=== PATIENT | male | born 1955 | race Caucasian/White ===

== ENCOUNTER → 2020-03-20 17:01 | Outpatient (BNVA) | payer OTHER, SELFPAY | PROVIDERS: Family Provider Family Medicine; PCP Nurse Practitioner; Visit Provider Nurse Practitioner | DX: J02.9 Acute pharyngitis, unspecified (principal); J01.90 Acute sinusitis, unspecified | CPT/HCPCS: 87071; 87880 ==

== ENCOUNTER → 2020-05-21 09:29 | Outpatient (BNVA) | payer MEDICARE, OTHER, SELFPAY | PROVIDERS: Family Provider Family Medicine; PCP Nurse Practitioner; Visit Provider Family Medicine | DX: I10 Essential (primary) hypertension (principal); E78.5 Hyperlipidemia, unspecified; N52.9 Male erectile dysfunction, unspecified; R35.1 Nocturia | CPT/HCPCS: 80053; 80061; 82043; 84153; 84403; 85025; 87635 ==

== ENCOUNTER → 2020-06-10 16:25 | Outpatient (BNVA) | payer MEDICARE, OTHER, SELFPAY | PROVIDERS: Family Provider Family Medicine; PCP Nurse Practitioner; Visit Provider Nurse Practitioner Family | DX: Z20.828 Contact with and (suspected) exposure to other viral communicable diseases (principal) | CPT/HCPCS: 87635 ==

== ENCOUNTER 2020-07-20 08:07 | Outpatient (CLI) | payer MEDICARE, OTHER, SELFPAY ==
[2020-07-20 08:19] VITALS: BMI 43.8
--- NOTE | 2020-07-20 08:20 | NMCV_ITS ---
NM alessio perf SPECT r/s* [id number] Abhijit Cerna Age: 65 Gender: M : 1955 Exam Date: 07/20/2020 08:20 Ordering Phys: Jeannie Muñiz MD ([email or web address]) Technologist: KAREN Arboleda Exam Location: [facility] Indications: Chest pain STRESS TEST Please see separate stress test [facility] for full findings IMAGE PROTOCOL Rest/Stress 1 Exercise Day Radiopharmaceutical Dose (mCi) Administration Site Administered by Rest: Tc-99m 10.6 IV Thu Jenny, CLINICAL EVALUATOR Sestamibi Stress:Tc-99m 33.0 IV Thu Jenny, CLINICAL EVALUATOR Sestamibi Rest: 20-Jul-2020 60 Discovery 630 Stress: 20-Jul-2020 30 Discovery 630 Radiopharmaceutical was injected at 85 % maximum heart rate. Images obtained in supine and prone position. SPECT RESULTS Technical Quality: Good Raw Data Analysis: Normal Image Corrections: No attenuation or motion correction applied Summed Stress Score: 7 Summed Rest Score: 7 Summed Difference Score: 0 PERFUSION FINDINGS Moderate area of severely decreases uptake was noted in the mid and apical inferior, mid inferolateral and apical lateral regions. No significant reversibility was noted in these regions. FUNCTIONAL RESULTS (calculated via Gated SPECT) Stress Image LV EF (%): 60 Stress EDV (mL):97 TID: 0.9 Stress ESV (mL):39 FUNCTIONAL FINDINGS: Segmental wall motion analysis revealed a severe diffuse hypokinesia of the septum. IMPRESSIONS 1. Myocardial perfusion imaging revealing a moderate area of persistent decreased tracer uptake in the inferior, inferolateral and apical regions, suggestive of myocardial scarring versus attenuation artifact. 2. Normal LV ejection fraction of 60%. 3. LV wall motion abnormalities as mentioned above. 4. Normal LV volume. No significant coronary ischemia, based on the above Dr Jeannie Muñiz MD FACC (Electronically Signed) Final Date: 20 July 2020 13:20 S
--- NOTE | 2020-07-20 08:20 | ECG_ITS ---
[facility] Test Date: 2020-07-20 Pat Name: Abhijit Cerna Department: Room: Gender: Male Meeting Manager: : 1955 Requested By: Jeannie Muñiz Order Number: [id number] Emanuel MD: Jeannie Muñiz M.D. Interpretive Statements NAME OF STUDY: EXERCISE SESTAMIBI STRESS TEST INDICATION: ASHD PROCEDURE: The baseline electrocardiogram showed normal sinus rhythm with normal ST-Ts right bundle branch block pattern. At the baseline, the patient's blood pressure was 194/88 mm Hg with a heart rate of 82. The patient exercised for 6 minutes on a standard Matt protocol. Patient attained a maximum heart rate of 143 beats per minute(92% of the maximum predicted heart rate) with a blood pressure at the peak exercise of 269/122 mm Hg. The EKG at the peak exercise revealed no significant changes. Patient did not have any chest pain or any significant arrhythmis with the exercise Sestamibi was injected 1 minute prior to the peak exercise During the recovery phase, there were no new changes. Blood pressure at the end of the recovery phase was 187/77 mm Hg with a heart rate of 93 per minute. CONCLUSION: 1. No significant EKG changes with the [treadmill exercise 2. No exercise-induced chest pain or cardiac arrhythmia 3. Slightly impaired exercise tolerance, attained a maximum of 7.0 METs. 4. Sestamibi/Sestamibi perfusion results pending; see separate report. Electronically Signed On 07-24-2020 20:42:28 CAR RENTAL MANAGER by Jeannie Muñiz M.D. [id number]
--- NOTE | 2020-07-20 10:41 | SUR.PREOP ---
Patient reports no pain or discomfort prior to the start of the procedure.
[2020-07-20 11:07] VITALS: BP 188/69; PULSE 78
== END 2020-07-20 08:08 | disposition home or self-care (01) ==
LOC: CDL 08:12
PROVIDERS: PCP Family Medicine; Visit Provider Internal Medicine Cardiovascular Disease
DX: R07.89 Other chest pain (principal); R06.02 Shortness of breath
CPT/HCPCS: 78452; 93017; A9500

== ENCOUNTER → 2020-09-05 15:23 | Outpatient (BNVA) | payer OTHER, MEDICARE, SELFPAY | PROVIDERS: PCP Family Medicine; Visit Provider Nurse Practitioner Family | DX: J02.9 Acute pharyngitis, unspecified (principal); B97.89 Other viral agents as the cause of diseases classified elsewhere; J98.8 Other specified respiratory disorders; Z20.828 Contact with and (suspected) exposure to other viral communicable diseases | CPT/HCPCS: 87071; 87635; 87880 ==

== ENCOUNTER 2020-10-03 08:20 | Outpatient (CLI) | payer OTHER, MEDICARE, SELFPAY ==
--- NOTE | 2020-10-03 08:30 | CT_ITS ---
WS: [id number] LDCT LUNG CANCER SCREENING TECHNIQUE: Noncontrast CT of the chest with coronal and sagittal reformatted images. CLINICAL INFORMATION: HISTORY OF TOBACCO USE Z87.891 COMPARISON: DLP: 57.35 mGy.cm DIvol: 1.[address] scans at [facility] use at least one of these dose optimization techniques: automat ed exposure control; mA and/or kV adjustment per patient size (includes targeted exams where dose is matched to clinical indication); or iterative reconstruction. FINDINGS: A few subcentimeter noncalcified pulmonary nodules the 2 largest in the left lower lobe measuring 4 a nd 5 mm respectively. These are not significantly changed since November 22, 2018. Calcified granuloma right lower lobe. Chronic emphysematous changes. Small left pleural effusion. Sub segmental atelectasis in the lung bases. Aortic calcification. Coronary calcification. Sternotomy prior CABG. No mediastinal or hilar lymphade nopathy. No axillary lymphadenopathy. Hypertrophic changes thoracic spine. CT/CT lung screening [id number] IMPRESSION: LUNG-RADS: 2-Benign Appearance or Behavior FOLLOW UP: 12 Month: Continue annual screening with LDCT
== END 2020-10-03 08:21 | disposition home or self-care (01) ==
LOC: RAD 08:26
PROVIDERS: PCP Family Medicine; Visit Provider Family Medicine
DX: Z12.2 Encounter for screening for malignant neoplasm of respiratory organs (principal); Z87.891 Personal history of nicotine dependence
CPT/HCPCS: 71271

== ENCOUNTER → 2020-11-02 14:56 | Outpatient (BNVA) | payer OTHER, MEDICARE, SELFPAY | PROVIDERS: PCP Family Medicine; Visit Provider Nurse Practitioner | DX: M17.12 Unilateral primary osteoarthritis, left knee (principal); M25.562 Pain in left knee; M25.462 Effusion, left knee | CPT/HCPCS: 73562 ==

== ENCOUNTER → 2020-11-09 09:08 | Outpatient (BNVA) | payer OTHER, MEDICARE, SELFPAY | PROVIDERS: PCP Family Medicine; Visit Provider Family Medicine | DX: I10 Essential (primary) hypertension (principal); E66.01 Morbid (severe) obesity due to excess calories; Z68.42 Body mass index [BMI] 45.0-49.9, adult; F17.211 Nicotine dependence, cigarettes, in remission | CPT/HCPCS: 80053; 80061; 82043; 85025 ==

== ENCOUNTER → 2021-09-04 13:04 | Outpatient (BNVA) | payer OTHER, MEDICARE, SELFPAY | PROVIDERS: PCP Family Medicine; Visit Provider Nurse Practitioner Family | DX: Z20.828 Contact with and (suspected) exposure to other viral communicable diseases (principal) | CPT/HCPCS: 87635 ==

== ENCOUNTER → 2021-10-17 15:26 | Outpatient (BNVA) | payer OTHER, MEDICARE, SELFPAY | PROVIDERS: PCP Family Medicine; Visit Provider Nurse Practitioner Family | DX: Z20.822 Contact with and (suspected) exposure to COVID-19 (principal); Z20.828 Contact with and (suspected) exposure to other viral communicable diseases | CPT/HCPCS: 87635 ==

== ENCOUNTER 2021-10-20 19:01 | Emergency (ER) | payer OTHER, MEDICARE, SELFPAY ==
--- NOTE | 2021-10-20 19:05 | XRR_ITS ---
PROCEDURE INFORMATION: Exam: XR Chest Exam date and time: 10/20/2021 7:05 PM Age: 66 years old Clinical indication: Cough and dyspnea; Prior surgery; Surgery date: 6+ months; Surgery type: Cabg; Additional info: SOB TECHNIQUE: Imaging protocol: XR of the chest. Views: 1 view. COMPARISON: CT chest con [id number] 11/22/2018 8:35 AM FINDINGS: Lungs: Unremarkable. No consolidation. Pleural spaces: Unremarkable. No pleural effusion. No pneumothorax. Heart/Mediastinum: Mild cardiomegaly. Prior CABG. Bones/joints: Unremarkable. XR/XR chest 1V portable [id number] IMPRESSION: No acute pulmonary disease identified.
[2021-10-20 19:15] VITALS: BP 186/87; PULSE 69; RESP 24; TEMP 36.7; O2SAT 98; BMI 46.2
--- NOTE | 2021-10-20 22:24 | ED_ITS ---
HPI - SOB/Dyspnea General: Chief Complaint: Shortness of Breath/Dyspnea Stated Complaint: cough,sob Time Seen by Provider: 10/20/21 22:13 Source: patient Mode of arrival: ambulatory Limitations: no limitations History of Present Illness: HPI Narrative: 66-year-old male who states that he has been having a constant cough over the last 6 to 7 weeks he states he has been seen in the urgent care multiple times had 3 different Covid test that were negative is been on steroids albuterol and antibiotics with no change. He states he is continued with this dry cough. Denies any fever or shortness of breath. Patient is on lisinopril states he has never had any issues with it in the past. Associated symptoms: Deny abdominal pain, chest pain, fever(s), nausea or vomiting Review of Systems Const: Denies: fever(s), chills, body aches or change in appetite Eyes: Denies: blurry vision or eye discomfort ENMT: Denies: throat pain or dental pain Card: Denies: chest pain Resp: Reports: non-productive cough; Denies: dyspnea GI: Denies: abdominal pain, nausea, vomiting or diarrhea : Denies: dysuria Musc: Denies: neck pain or back pain Skin/Breast: Denies: rash Neuro: Denies: headache(s) Psych: Denies: depression Karthikeyan/Lymph: Denies: easy bruising All/Imm: Denies: urticaria PFSH ED PFSH: Medical History (Updated 10/20/21 @ 23:40 by Belkis Samuels MD) Acid reflux Atherosclerotic heart disease of [place] coronary artery without angina pectoris Atrial fibrillation with RVR Dyslipidemia Hypertension Hypokalemia Pulmonary emboli Severe obstructive sleep apnea Surgical History Hx of CABG Hx of hernia repair Family History Brother CAD (coronary artery disease) Stroke Brother CAD (coronary artery disease) Family/Other CAD (coronary artery disease) Mother Cancer Father Dementia Sister Lung disease Other Hyperlipidemia Hypertension Denies family history of Diabetes Clotting disorder Chronic kidney disease (CKD) Suicide Anesthesia complication Bleeding disorder Social History Smoking and tobacco status: former smoker Alcohol intake: former History of recent travel: No Agree to transfusion: Yes (11/04/2019) Physical Exam Const: COMMON NORMALS: no acute distress, patient oriented x3 and healthy appearing HENMT: COMMON NORMALS: normocephalic and atraumatic HEAD & SCALP: normocephalic and atraumatic Eye: COMMON NORMALS: Equal, round and reactive pupils present and EOMs intact bilaterally PUPIL: Yes Equal, round and reactive pupils present Neck/C-Spine: COMMON NORMALS: full ROM and supple Chest: COMMONS NORMALS: normal inspection of the chest and normal palpation of entire chest wall Resp: COMMON NORMALS: normal respiratory effort, No retractions, No use of acc essory muscles and clear to auscultation bilaterally AUSCULTATION: clear to auscultation bilaterally Cardio: COMMON NORMALS: regular rate, regular rhythm and No murmurs present (Cardio) RATE: regular rate RHYTHM: regular rhythm GI: COMMON NORMALS: Normal to inspection, nondistended, normoactive bowel sounds present, Soft to palpation, non-tender and no masses PALPATION: Yes Soft to palpation Extremity: COMMON NORMALS: normal to inspection and full ROM Neuro: COMMON NORMALS: patient oriented x3, moves all extremities and no focal motor deficits Psych: COMMON NORMALS: mental status grossly normal, Normal thought process present and cooperative THOUGHT PROCESS: Normal thought process present Skin: COMMON NORMALS: no rashes or lesions noted and no wounds GENERAL SKIN EXAM: no rashes or lesions noted Course Vital Signs: Vital signs: Vital Signs Temperature 98.0 F 10/20/21 19:15 Pulse Rate 69 10/20/21 19:15 Respiratory Rate 24 H 10/20/21 19:15 Blood Pressure 186/87 10/20/21 19:15 Pulse Oximetry 98 10/20/21 19:15 MDM - SOB/Dyspnea Medical Decision Making Patient presents here with cough that is been going on for weeks he has no signs of pneumonia has had multiple negative Covid test believe it could be due to his AURORA inhibitor will stop the lisinopril increase his metoprolol he follows up with his PCP this Thursday. Lab Data : 10/20/21 22:39 10/20/21 22:39 Labs/Radiology: Radiology Impressions Chest X-Ray 10/20/21 19:05 IMPRESSION: No acute pulmonary disease identified. Laboratory Results WBC 8.4 10^3/uL (4.0-10.0) 10/20/21 22:39 RBC 4.42 10^6/uL (4.1-5.3) 10/20/21 22: Hgb 14.4 g/dL (11.7-16.6) 10/20/21 22:39 Hct 42.5 % (42.0-52.0) 10/20/21 22: MCV 96.2 fl (80-94) H 10/20/21 22:39 MCH 32.6 pg (28.0-34.0) 10/20/21 22: MCHC 33.9 g/dL (30.0-36.0) 10/20/21 22: RDW 13.2 % (12.1-15.1) 10/20/21 22: Plt Count 207 10^3/cmm (130-400) 10/20/21 22: MPV 11.8 fL (7.4-10.4) H 10/20/21 22:39 Neut % (Auto) 49.2 % 10/20/21 22:39 Lymph % (Auto) 26.1 % 10/20/21 22:39 Burt % (Auto) 12.0 % 10/20/21 22:39 Eos % (Auto) 11.0 % 10/20/21 22:39 Baso % (Auto) 1.1 % 10/20/21 22:39 Neut # (Auto) 4.16 10^3/uL (1.8-7.7) 10/20/21 22:39 Lymph # (Auto) 2.2 10^3/uL (0.8-4.8) 10/20/21 22:39 Burt # (Auto) 1.0 10^3/uL (0.2-0.9) H 10/20/21 22:39 Eos # (Auto) 0.9 10^3/uL (0.0-0.8) H 10/20/21 22:39 Baso # (Auto) 0.1 10^3/uL (0.0-0.1) 10/20/21 22:39 Nucleated RBC % (auto) 0 % 10/20/21: Nucleated RBCs # 0.0 /100WBC 10/20/21 22:39 PT 14.70 SECONDS (12.1-14.9) 10/20/21 22:39 INR 1.11 (0.8-1.2) 10/20/21 22:39 Sodium 135 mmol/L (136-145) L 10/20/21 22:39 Potassium 4.4 mmol/L (3.5-5.1) 10/20/21 22:39 Chloride 103 mmol/L (98-107) 10/20/21 22:39 Carbon Dioxide 22 mmol/L (22-29) 10/20/21 22:39 Anion Gap 14.4 (5-19) 10/20/21 22:39 BUN 14 mg/dL (8-23) 10/20/21 22:39 Creatinine 0.9 mg/dL (0.7-1.2) 10/20/21 22:39 GFR Calculation 84.4 mL/min (90-130) L 10/20/21 22:39 Glucose 94 mg/dL (65-115) 10/20/21 22:39 Calculated Osmolality 280 mOsm/kg (285-295) L 10/20/21 22:39 Calcium 8.1 mg/dL (8.5-10.5) L 10/20/21 22:39 Total Bilirubin 0.2 mg/dL (0.15-1.2) 10/20/21 22:39 AST 36 U/L (0-40) 10/20/21 22:39 ALT 39 U/L (0-41) 10/20/21 22:39 Alkaline Phosphatase 86 IU/L (40-130) 10/20/21 22:39 NT-Pro-B Natriuret Pep 405 pg/mL (0-125) H 10/20/21 22:39 Total Protein 7.6 g/dL (6.6-8.7) 10/20/21 22:39 Albumin 3.7 g/dL (3.5-5.2) 10/20/21 22:39 Globulin 3.9 g/dL (1.3-4.6) 10/20/21 22:39 Imaging Data CXR: I personally reviewed and interpreted this imaging study as follows: My impression: no acute abnormality Discharge Plan Discharge Patient Disposition: Home Clinical Impression: 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 Condition: Stable Prescriptions: New metoprolol tartrate 50 mg tablet 50 mg PO BID Qty: 60 0RF Continued Tessalon Perles 100 mg capsule 100 mg PO BID PRN (Reason: cough) 15 Days Qty: 30 0RF Discontinued metoprolol tartrate 25 mg tablet See Rx Instructions .ROUTE .COMPLEX Qty: 180 2RF Dose Instruction: TAKE 1 TABLET BY MOUTH EVERY 12 HOURS Rx Instructions: TAKE 1 TABLET BY MOUTH EVERY 12 HOURS lisinopril 10 mg tablet 10 mg PO BID Qty: 180 2RF Rx Instructions: needs appt to see Dr Antonino Madden Action sotalol [Sotalol AF] 80 mg tablet 80 mg PO BID Qty: 180 3RF magnesium oxide 250 mg magnesium tablet 250 mg PO DAILY Qty: 90 3RF Eliquis 5 mg tablet 5 mg PO BID Qty: 180 3RF levocetirizine [Xyzal] 5 mg tablet 5 mg PO .nightly 15 Days Qty: 15 0RF amoxicillin-pot clavulanate [Augmentin] 875-125 mg tablet 1 tab PO BID 0RF melatonin 1 mg tablet See Rx Instructions PO DAILY PRN0RF Rx Instructions: PO daily PRN; aspirin [Adult Aspirin Regimen] 81 mg tablet,delayed release (DR/EC) 81 mg PO DAILY 0RF omeprazole 20 mg tablet,delayed release (DR/EC) 20 mg PO DAILY PRN0RF potassium gluconate 595 mg (99 mg) tablet 595 mg PO DAILY 0RF sildenafil (pulm.hypertension) 20 mg tablet 20 mg PO .COMPLEX Qty: 30 1RF Rx Instructions: 20 mg PO 1-5 tablets 1 hr prior to intercourse; administer doses at least 4-6 hours apart Contrave 8-90 mg tablet extended release 2 tab PO BID Qty: 120 3RF Rx Instructions: 340 B levofloxacin 500 mg tablet 500 mg PO DAILY Qty: 10 0RF budesonide-formoterol [Symbicort] 80-4.5 mcg/actuation HFA aerosol inhaler 2 puff inhalation BID Qty: 10.2 0RF Discharge Orders: Discharge ED (Routine); Ordered 10/20/21 Ordered By: Belkis Samuels Referrals: Erum Hicks DO [Primary Care Provider] - 1-3 days Discharge Diet: Advance as tolerated Discharge Activity: Resume usual activity Patient Instructions: Acute Cough (ED) Coding Level of Care Code ED Puttying And Calking Supervisor for Chg Fwd Exam Comprehensive
[2021-10-20] MEDS: benzonatate 100 mg Capsule 200 MG PO (22:31)
[2021-10-20 22:51] LABS: Basophils # 0.1 10^3/uL (0.0-0.1); Basophils % 1.1 %; Eosinophils # 0.9 10^3/uL (0.0-0.8); Hematocrit 42.5 % (42.0-52.0); Hemoglobin 14.4 g/dL (11.7-16.6); Lymphocytes # 2.2 10^3/uL (0.8-4.8); Lymphocytes % 26.1 %; Mean Corpuscular HGB Conc 33.9 g/dL (30.0-36.0); Mean Corpuscular Hemoglobin 32.6 pg (28.0-34.0); Mean Corpuscular Volume 96.2 fl (80-94); Mean Platelet Volume 11.8 fL (7.4-10.4); Neutrophils # 4.16 10^3/uL (1.8-7.7); Neutrophils % 49.2 %; Nucleated Red Blood Cells % 0 %; Platelet Count 207 10^3/cmm (130-400); Red Blood Count 4.42 10^6/uL (4.1-5.3); Red Cell Distribution Width 13.2 % (12.1-15.1); White Blood Count 8.4 10^3/uL (4.0-10.0)
[2021-10-20 23:31] LABS: INR 1.11 (0.8-1.2)
[2021-10-20 23:32] LABS: Alanine Aminotransferase 39 U/L (0-41); Albumin Level 3.7 g/dL (3.5-5.2); Alkaline Phosphatase 86 IU/L (40-130); Anion Gap 14.4 (5-19); Aspartate Amino Transferase 36 U/L (0-40); Blood Urea Nitrogen 14 mg/dL (8-23); Calcium 8.1 mg/dL (8.5-10.5); Carbon Dioxide 22 mmol/L (22-29); Chloride 103 mmol/L (98-107); Globulin 3.9 g/dL (1.3-4.6); Glomerular Filtration Rate 84.4 mL/min (90-130); Glucose 94 mg/dL (65-115); NT Pro B Type Natriuretic Pept 405 pg/mL (0-125); Osmolality Calculated 280 mOsm/kg (285-295); Potassium 4.4 mmol/L (3.5-5.1); Sodium 135 mmol/L (136-145); Total Bilirubin 0.2 mg/dL (0.15-1.2); Total Protein 7.6 g/dL (6.6-8.7)
== END 2021-10-20 23:54 | disposition home or self-care (01) ==
PROVIDERS: Emergency Provider Emergency Medicine; PCP Family Medicine
DX: R05.8 Other specified cough (principal); Z79.01 Long term (current) use of anticoagulants; Z79.82 Long term (current) use of aspirin; Z87.891 Personal history of nicotine dependence; I25.10 Atherosclerotic heart disease of native coronary artery without angina pectoris; E78.5 Hyperlipidemia, unspecified; I10 Essential (primary) hypertension; Z86.711 Personal history of pulmonary embolism; Z95.1 Presence of aortocoronary bypass graft
CPT/HCPCS: 71045; 80053; 83880; 85025; 85610; 99283

== ENCOUNTER 2021-11-11 07:56 | Emergency (ER) | payer OTHER, MEDICARE, SELFPAY ==
[2021-11-11 08:11] VITALS: BP 145/48; PULSE 60; RESP 15; O2SAT 97; BMI 44.6
--- NOTE | 2021-11-11 08:23 | ECG_ITS ---
[facility] Test Date: 2021-11-11 Pat Name: Abhijit Cerna Department: Room: Gender: Male Cost Estimator: : 1955 Requested By: Martell Aburto Order Number: [id number] Emanuel MD: Abad Glover M.D. Measurements Intervals [place] Rate: 60 P: 39 RI: 166 QRS: 30 QRSD: 141 T: 10 QT: 486 QTc: 486 Interpretive Statements SINUS RHYTHM WITH OCCASIONAL SUPRAVENTRICULAR PREMATURE COMPLEXES RIGHT BUNDLE BRANCH BLOCK [120+ ms QRS DURATION, UPRIGHT V1, 40+ ms S IN I/aVL/V4/V5/V6] Compared to ECG 05/21/2018 14:31:02 Atrial fibrillation no longer present T-wave abnormality no longer present Possible ischemia no longer present Electronically Signed On 11-11-2021 12:12:36 SALESFORCE TRAINER by Abad Glover M.D. [id number]
--- NOTE | 2021-11-11 08:23 | XR_ITS ---
WS: [id number] CHEST XRAY TECHNIQUE: Portable chest. CLINICAL INFORMATION: dyspnea/cough COMPARISON: October 20, 2021 FINDINGS: Heart: Cardiomegaly. Sternotomy. Mediastinal clips. Lungs: No acute pulmonary infiltrates. No focal pneumonia or pleural fluid. Bones: Normal visualized bony structures. XR/XR chest 1V portable [id number] IMPRESSION: No acute chest findings
[2021-11-11 08:24] VITALS: BP 137/50; PULSE 59; RESP 16; O2SAT 97
--- NOTE | 2021-11-11 08:24 | ED_ITS ---
HPI - Arrhythmia/Palpitations General: Chief Complaint: Arrhythmia/Palpitations Stated Complaint: possible Afib, SOB, dizziness Time Seen by Provider: 11/11/21 07:57 Source: patient Mode of arrival: EMS History of Present Illness: 66-year-old male presents emergency room complaining of irregular heartbeat and rapid heartbeat. Patient has a known history of atrial fibrillation. He is on sotalol and aspirin. He states he recently was switched from lisinopril to valsartan for blood pressure control because of an AURORA inhibitor cough. He has not taken his sotalol this morning. He reports earlier this morning he felt a rapid heart rate. Time patient was seen he is in normal sinus rhythm with occasional PACs. There are some compensatory sinus pauses as well. He denies any chest discomfort. He states when the heart rate is rapid he feels like he is going to pass out and will have shortness of breath at times. He usually sees Dr. Muñiz last seen him 6 months ago recently seen the midlevel Nazanin Martini at the cardiology clinic. complaint: rapid heart beat and heart racing Onset (ago): week(s) Duration: intermittent Severity: mild Context: occurred during rest Arrhythmia history: atrial fibrillation Associated symptoms: Reports pre-syncope and short of breath; Deny anxiety, cough, diaphoresis, muscle cramps, nausea, paresthesias, sense of impending doom, syncope or vomiting Review of Systems Const: Denies: diaphoresis ENMT: Denies: throat pain, ear or mastoid pain, nasal discharge or nasal congestion Card: Reports: pre-syncope; Denies: syncope Resp: Denies: dyspnea, productive cough or non-productive cough GI: Denies: nausea or vomiting : Denies: flank pain, dysuria, urinary frequency or urinary urgency Musc: Denies: muscle cramps Skin/Breast: Denies: rash or pruritus Psych: Denies: anxiety PFSH ED PFSH: Medical History (Updated 11/11/21 @ 11:28 by Martell Burgos DO) Acid reflux Atherosclerotic heart disease of [place] coronary artery without angina pectoris Atrial fibrillation with RVR Dyslipidemia Hypertension Hypokalemia Pulmonary emboli Severe obstructive sleep apnea Surgical History Hx of CABG Hx of hernia repair Family History Brother CAD (coronary artery disease) Stroke Brother CAD (coronary artery disease) Family/Other CAD (coronary artery disease) Mother Cancer Father Dementia Sister Lung disease Other Hyperlipidemia Hypertension Denies family history of Diabetes Clotting disorder Chronic kidney disease (CKD) Suicide Anesthesia complication Bleeding disorder Social History Smoking and tobacco status: former smoker Alcohol intake: former History of recent travel: No Agree to transfusion: Yes (11/04/2019) Physical Exam Const: GENERAL APPEARANCE: cooperative and comfortable ORIENTATION/CONSCIOUSNESS: Yes awake, Yes oriented to person, Yes oriented to place and Yes oriented to time HENMT: COMMON NORMALS: normocephalic, atraumatic and hearing grossly normal bilaterally HEAD & SCALP: normocephalic and atraumatic Neck/C-Spine: COMMON NORMALS: no JVD Resp: COMMON NORMALS: normal respiratory effort, No retractions, No use of accessory muscles and clear to auscultation bilaterally AUSCULTATION: clear to auscultation bilaterally Cardio: COMMON NORMALS: no JVD, regular rate, regular rhythm and No murmurs present (Cardio) RATE: regular rate RHYTHM: regular rhythm GI: COMMON NORMALS: Soft to palpation and No hepatosplenomegaly present AUSCULTATION: Yes normoactive bowel sounds PALPATION: Yes Soft to palpation, No Tenderness to palpation present (GI), No Guarding due to palpation present (GI) and Yes No hepatosplenomegaly present Extremity: COMMON NORMALS: normal to inspection, capillary refill normal, no clubbing, cyanosis or edema, no calf tenderness and no pedal edema Neuro: SENSORIUM/ORIENTATION: Yes oriented to person, Yes oriented to place and Yes oriented to time Skin: COMMON NORMALS: no rashes or lesions noted GENERAL SKIN EXAM: no rashes or lesions noted Course Vital Signs: Vital signs: Vital Signs Pulse Rate 57 L 11/11/21 11:40 Respiratory Rate 13 11/11/21 11:40 Blood Pressure 137/62 11/11/21 11:40 Pulse Oximetry 96 11/11/21 11:40 MDM - Arrhythmia/Palpitations Medical Decision Making Patient in normal sinus rhythm the majority of time he does have a few episodes of slow A. fib but usually self corrects. At this point there is no intervention to be made he is stable. We will set up a Holter monitor second evaluate for breakthrough A. fib with RVR follow-up with his primary care doctor no change in medications discussed with the patient. Medical Records I reviewed the patient's medical records. Lab Data I reviewed the patient's lab results. : 11/11/21 09:00 11/11/21 09:00 Radiology Impressions Chest X-Ray 11/11/21 08:23 IMPRESSION: No acute chest findings Laboratory Results WBC 6.6 10^3/uL (4.0-10.0) 11/11/21 09:00 RBC 4.12 10^6/uL (4.1-5.3) 11/11/21 09:00 Hgb 13.2 g/dL (11.7-16.6) 11/11/21 09:00 Hct 39.9 % (42.0-52.0) L 11/11/21 09:00 MCV 96.8 fl (80-94) H 11/11/21 09:00 MCH 32.0 pg (28.0-34.0) 11/11/21 09:00 MCHC 33.1 g/dL (30.0-36.0) 11/11/21 09:00 RDW 12.9 % (12.1-15.1) 11/11/21 09:00 Plt Count 180 10^3/cmm (130-400) 11/11/21 09:00 MPV 11.7 fL (7.4-10.4) H 11/11/21 09:00 Neut % (Auto) 44.1 % 11/11/21 09:00 Lymph % (Auto) 24.8 % 11/11/21 09:00 Fisher % (Auto) 8.0 % 11/11/21 09:00 Eos % (Auto) 21.6 % 11/11/21 09:00 Baso % (Auto) 1.2 % 11/11/21 09:00 Neut # (Auto) 2.92 10^3/uL (1.8-7.7) 11/11/21 09:00 Lymph # (Auto) 1.6 10^3/uL (0.8-4.8) 11/11/21 09:00 Fisher # (Auto) 0.5 10^3/uL (0.2-0.9) 11/11/21 09:00 Eos # (Auto) 1.4 10^3/uL (0.0-0.8) H 11/11/21 09:00 Baso # (Auto) 0.1 10^3/uL (0.0-0.1) 11/11/21 09:00 Nucleated RBC % (auto) 0 % 11/11/21 09:00 Nucleated RBCs # 0.0 /100WBC 11/11/21 09:00 Sodium 135 mmol/L (136-145) L 11/11/21 09:00 Potassium 3.8 mmol/L (3.5-5.1) 11/11/21 09:00 Chloride 104 mmol/L (98-107) 11/11/21 09:00 Carbon Dioxide 20 mmol/L (22-29) L 11/11/21 09:00 Anion Gap 14.8 (5-19) 11/11/21 09:00 BUN 15 mg/dL (8-23) 11/11/21 09:00 Creatinine 0.9 mg/dL (0.7-1.2) 11/11/21 09:00 GFR Calculation 84.4 mL/min (90-130) L 11/11/21 09:00 Glucose 143 mg/dL (65-115) H 11/11/21 09:00 Calculated Osmolality 283 mOsm/kg (285-295) L 11/11/21 09:00 Calcium 9.1 mg/dL (8.5-10.5) 11/11/21 09:00 Total Bilirubin 0.3 mg/dL (0.15-1.2) 11/11/21 09:00 AST 40 U/L (0-40) 11/11/21 09:00 ALT 41 U/L (0-41) 11/11/21 09:00 Alkaline Phosphatase 73 IU/L (40-130) 11/11/21 09:00 Troponin T Baseline 13 ng/L (0-15) 11/11/21 09:00 Troponin T 120 Minute 11.56 ng/L (0-15) 11/11/21 10:41 Delta Troponin T -1.44 ABS# (0-10) L 11/11/21 10:41 Total Protein 7.5 g/dL (6.6-8.7) 11/11/21 09:00 Albumin 3.6 g/dL (3.5-5.2) 11/11/21 09:00 Globulin 3.9 g/dL (1.3-4.6) 11/11/21 09:00 Discharge Plan Discharge Patient Disposition: Home Clinical Impression: Atrial fibrillation, Hypertension Condition: Stable Prescriptions: No Action Eliquis 5 mg tablet 5 mg PO BID Qty: 180 3RF metoprolol tartrate 50 mg tablet 25 mg PO BID 0RF Tessalon Perles 100 mg capsule 100 mg PO TID PRN (Reason: cough) 15 Days Qty: 45 0RF omeprazole 20 mg tablet,delayed release (DR/EC) 20 mg PO DAILY PRN (Reason: Heartburn) 0RF potassium gluconate 595 mg (99 mg) tablet 595 mg PO QAM 0RF sildenafil (pulm.hypertension) 20 mg tablet 20 mg PO .COMPLEX Qty: 30 1RF Rx Instructions: 1-5 tablets 1 hr prior to intercourse; administer doses at least 4-6 hours apart Contrave 8-90 mg tablet extended release 2 tab PO BID Qty: 120 3RF Rx Instructions: 340 B multivitamin Tablet 1 tab PO DAILY 0RF aspirin 325 mg Tablet 325 mg PO QAM 0RF sotalol 80 mg tablet 80 mg PO BID 0RF Claritin 10 mg Tablet 10 mg PO DAILY PRN (Reason: Allergy Symptoms) 0RF melatonin 10 mg Tablet 10 mg PO BEDTIME PRN (Reason: Sleep) 0RF magnesium oxide 400 mg magnesium Tablet 400 mg PO BEDTIME 0RF valsartan 160 mg tablet 160 mg PO QAM 0RF Xyzal 5 mg tablet 5 mg PO DAILY PRN (Reason: Allergy Symptoms) 0RF Discharge Orders: Discharge ED (Routine); Ordered 11/11/21 Ordered By: Martell Burgos Referrals: Erum Hicks DO [Primary Care Provider] - Patient Instructions: Opioid Safety Activity Restrictions/Additional Instructions: manager club will make arrangements for you for 48-hour Holter monitor. Follow- up with cardiology. Coding Level of Care Code ED Nurse Healthcare Manager for Ivonne Fwd Exam Comprehensive
[2021-11-11 08:46] VITALS: BP 121/63; BP 143/65; BP 149/64
[2021-11-11 09:11] LABS: Basophils # 0.1 10^3/uL (0.0-0.1); Basophils % 1.2 %; Eosinophils # 1.4 10^3/uL (0.0-0.8); Eosinophils % 21.6 %; Hematocrit 39.9 % (42.0-52.0); Hemoglobin 13.2 g/dL (11.7-16.6); Lymphocytes # 1.6 10^3/uL (0.8-4.8); Lymphocytes % 24.8 %; Mean Corpuscular HGB Conc 33.1 g/dL (30.0-36.0); Mean Corpuscular Volume 96.8 fl (80-94); Mean Platelet Volume 11.7 fL (7.4-10.4); Monocytes # 0.5 10^3/uL (0.2-0.9); Neutrophils # 2.92 10^3/uL (1.8-7.7); Neutrophils % 44.1 %; Nucleated Red Blood Cells % 0 %; Platelet Count 180 10^3/cmm (130-400); Red Blood Count 4.12 10^6/uL (4.1-5.3); Red Cell Distribution Width 12.9 % (12.1-15.1); White Blood Count 6.6 10^3/uL (4.0-10.0)
[2021-11-11 09:27] LABS: Alanine Aminotransferase 41 U/L (0-41); Albumin Level 3.6 g/dL (3.5-5.2); Alkaline Phosphatase 73 IU/L (40-130); Anion Gap 14.8 (5-19); Aspartate Amino Transferase 40 U/L (0-40); Blood Urea Nitrogen 15 mg/dL (8-23); Calcium 9.1 mg/dL (8.5-10.5); Carbon Dioxide 20 mmol/L (22-29); Chloride 104 mmol/L (98-107); Globulin 3.9 g/dL (1.3-4.6); Glomerular Filtration Rate 84.4 mL/min (90-130); Glucose 143 mg/dL (65-115); Osmolality Calculated 283 mOsm/kg (285-295); Potassium 3.8 mmol/L (3.5-5.1); Sodium 135 mmol/L (136-145); Total Bilirubin 0.3 mg/dL (0.15-1.2); Total Protein 7.5 g/dL (6.6-8.7)
[2021-11-11 09:28] LABS: Troponin(5th) Baseline 13 ng/L (0-15)
[2021-11-11 09:45] VITALS: BP 121/63; PULSE 61; RESP 16; O2SAT 97
--- NOTE | 2021-11-11 09:59 | PC.PHAR ---
pt states he takes care of his own medications-pt states he doesnt use symbicort 80-4.5mcg and proair hfa last filled on 10/11/21
--- NOTE | 2021-11-11 10:23 | ECG_ITS ---
[facility] Test Date: 2021-11-11 Pat Name: Abhijit Cerna Department: Room: Gender: Male Structural Manager: : 1955 Requested By: Martell Aburto Order Number: [id number] Emanuel MD: Abad Glover M.D. Measurements Intervals [place] Rate: 54 P: 29 OR: 163 QRS: 28 QRSD: 142 T: 2 QT: 490 QTc: 465 Interpretive Statements SINUS BRADYCARDIA RIGHT BUNDLE BRANCH BLOCK [120+ ms QRS DURATION, UPRIGHT V1, 40+ ms S IN I/aVL/V4/V5/V6] Compared to ECG 11/11/2021 08:39:55 Sinus rhythm no longer present Electronically Signed On 11-11-2021 12:16:27 FOREIGN CLERK by Abad Glover M.D. [email or web address] hospital[facility].[employer]/store/OM/[id number]
[2021-11-11 11:18] LABS: Troponin 5 2HR 11.56 ng/L (0-15)
[2021-11-11 11:40] VITALS: BP 137/62; PULSE 57; RESP 13; O2SAT 96
[2021-11-11 11:47] LABS: Troponin 5 2HR Delta -1.44 ABS# (0-10)
--- NOTE | 2021-11-12 10:58 | DCPLANNER ---
Addendum entered by Nikole Draper 12/13/21 11:58: Patient had a follow up appointment scheduled for 12.09.21 with [facility] - patient did attend appointment. Patient had a follow up appointment scheduled for 11.25.21 for a holter monitor - patient did not attend appointment. Addendum entered by Nikole Draper 11/16/21 10:25: Patient has an appointment scheduled for Thursday, November 25, 2021 at 11:30 at [facility] for a 48 hour halter monitor. Original Note: manager orange had message to schedule a follow up appointment for patient with [facility], and to schedule an out patient 48 hour halter monitor. manager orange called [facility], spoke with Tita, gave clinic patients information. A follow up appointment is scheduled for Thursday, December 09, 2021 at 1:[address] Muñiz. manager orange called both numbers in chart, and [phone], unable to speak with patient at this time, a voicemail was left for patient to return disease case manager rn phone call. manager orange faxed the signed order for the 48 hour halter monitor to [facility], who will call patient with appointment information.
== END 2021-11-11 11:42 | disposition home or self-care (01) ==
PROVIDERS: Emergency Provider Family Medicine; PCP Family Medicine
DX: I48.91 Unspecified atrial fibrillation (principal); I10 Essential (primary) hypertension; Z79.01 Long term (current) use of anticoagulants; Z79.82 Long term (current) use of aspirin; I25.10 Atherosclerotic heart disease of native coronary artery without angina pectoris; E78.5 Hyperlipidemia, unspecified; Z86.711 Personal history of pulmonary embolism; Z95.1 Presence of aortocoronary bypass graft; Z87.891 Personal history of nicotine dependence
CPT/HCPCS: 36415; 71045; 80053; 84484; 85025; 93005; 99283

== ENCOUNTER 2022-05-06 15:37 | Outpatient (CLI) | payer OTHER, MEDICARE, SELFPAY ==
--- NOTE | 2022-05-06 15:45 | USCV_ITS ---
Abhijit Cerna Age: 67 Gender: M : 1955 Exam Date: 05/06/2022 16:03 Ordering Phys: Erum Hicks DO Technologist: FREDERICK Exam Location: [facility] [place] Indication: Dizziness Risk Factors: Previous Vascular Surgery: Right Brachial BP: / Left Brachial BP: / Right Left Velocity (cm/s) Spectral Plaque Velocity (cm/s) Spectral Plaque Syst/Diast Broadening Syst/Diast Broadening 74.90/ 10.50 Prox CCA 109.10/ 19.70 78.20/ 19.10 Mid CCA 114.50/ 21.40 87.80/ 20.20 Distal CCA 113.60/ 21.40 178.10/61.20 Prox ICA 153.80/ 35.50 186.90/51.80 Mid ICA 217.50/ 40.40 229.50/39.10 Distal ICA 195.80/ 46.60 167.00 ECA 170.90 2.61 ICA/CCA 1.90 Antegrade Vertebral Antegrade 72.30/ 19.70 cm/s 78.60/ 17.10 cm/s Tri Subclavian Bi 209.6 144.6 0 0 CONCLUSIONS Right ICA stenosis 50-69%. Mild atheromatous plaque right carotid bulb/ICA. Left ICA stenosis 50-69%. Mild atheromatous plaque left carotid bulb/ICA. Normal antegrade Doppler flow noted in the right vertebral artery. Normal antegrade Doppler flow noted in the left vertebral artery. Zane Pendleton MD (Electronically Signed) Final Date: 06 May 2022 16:45 S
== END 2022-05-06 15:38 | disposition home or self-care (01) ==
PROVIDERS: PCP Family Medicine; Visit Provider Family Medicine
DX: Z12.5 Encounter for screening for malignant neoplasm of prostate (principal); R42 Dizziness and giddiness; I65.23 Occlusion and stenosis of bilateral carotid arteries; I10 Essential (primary) hypertension
CPT/HCPCS: 80053; 80061; 93880; G0103

== ENCOUNTER → 2022-05-08 09:19 | Outpatient (BNVA) | payer OTHER, MEDICARE, SELFPAY | PROVIDERS: PCP Family Medicine; Visit Provider Family Medicine | DX: R73.09 Other abnormal glucose (principal); R79.89 Other specified abnormal findings of blood chemistry | CPT/HCPCS: 83036; 86705; 86706; 86709; 86803; 87340 ==

== ENCOUNTER 2022-06-08 19:08 | Observation (INO) | payer MEDICARE, OTHER, SELFPAY ==
[2022-06-08] VITALS (7 sets, daily range): BP systolic 183–235; BP diastolic 83–101; PULSE 73–77; RESP 16–24; TEMP 37.1; O2SAT 94–96
--- NOTE | 2022-06-08 20:04 | XRR_ITS ---
PROCEDURE INFORMATION: Exam: XR Chest Exam date and time: 06/08/2022 8:38 PM Age: 67 years old Clinical indication: Shortness of breath; Prior surgery; Additional info: SOB TECHNIQUE: Imaging protocol: Radiologic exam of the chest. Views: 2 views. COMPARISON: CR XR chest 1V portable [id number] 11/11/2021 8:41 AM FINDINGS: Lungs: Bibasilar atelectasis versus infiltrate. Pleural spaces: Unremarkable. No pleural effusion. No pneumothorax. Heart/Mediastinum: Cardiomegaly and interstitial edema. Bones/joints: Sternotomy wires. XR/XR chest 2V* [id number] IMPRESSION: 1. Cardiomegaly and interstitial edema. 2. Bibasilar atelectasis versus infiltrate.
--- NOTE | 2022-06-08 20:05 | ECG_ITS ---
[facility] Test Date: 2022-06-08 Pat Name: Abhijit Cerna Department: Room: Gender: Male Architecture Department Chair: : 1955 Requested By: Rubens Madrid Order Number: [id number] Emanuel MD: Damaso Bonilla M.D. Measurements Intervals [place] Rate: 72 P: 27 OK: 136 QRS: 23 QRSD: 132 T: 29 QT: 423 QTc: 465 Interpretive Statements SINUS RHYTHM RIGHT BUNDLE BRANCH BLOCK [120+ ms QRS DURATION, UPRIGHT V1, 40+ ms S IN I/aVL/V4/V5/V6] Compared to ECG 11/11/2021 10:25:27 Sinus bradycardia no longer present Electronically Signed On 06-09-2022 7:35:20 CDT by Damaso Bonilla M.D. [email or web address].Touch of [facility] hospitalXishiwang.[facility].[employer]/store/NU/[id number] f
--- NOTE | 2022-06-08 20:09 | W.ED.SOB ---
HPI - SOB/Dyspnea General: Chief Complaint: Shortness of Breath/Dyspnea Stated Complaint: sob Time Seen by Provider: 06/08/22 19:22 History of Present Illness: HPI Narrative: 67-year-old male presents with shortness of breath. Patient was seen in urgent care yesterday and diagnosed with bronchitis started on doxycycline. Patient reports his symptoms started 3 days ago with generalized malaise, headache, cough, shortness of breath. Today he is got some chest tightness. He feels like he is getting worse not better so he presents to the ER. Associated symptoms: Reports chest congestion; Deny abdominal pain, chest pain, dizziness, lightheadedness, nausea or vomiting Review of Systems Const: Reports: body aches, fatigue and malaise Eyes: Denies: change in vision or blurry vision ENMT: Denies: throat pain or ear or mastoid pain Card: Denies: chest pain or lightheadedness Resp: Reports: dyspnea, non-productive cough, wheezing and chest congestion GI: Denies: abdominal pain, nausea or vomiting : Denies: flank pain, difficulty urinating or dysuria Musc: Denies: neck pain or back pain Skin/Breast: Denies: rash or pruritus Neuro: Reports: headache(s); Denies: dizziness Psych: Denies: anxiety or depression PFSH ED PFSH: Medical History Acid reflux Atherosclerotic heart disease of [place] coronary artery without angina pectoris Atrial fibrillation with RVR Dyslipidemia History of inguinal hernia Hypertension Hypokalemia Pulmonary emboli Severe obstructive sleep apnea Surgical History Hx of CABG Hx of hernia repair S/P pericardial window creation Family History Brother CAD (coronary artery disease) Stroke Brother CAD (coronary artery disease) Family/Other CAD (coronary artery disease) Mother Cancer Father Dementia Sister Lung disease Other Hyperlipidemia Hypertension Denies family history of Diabetes Clotting disorder Chronic kidney disease (CKD) Suicide Anesthesia complication Bleeding disorder Social History Smoking and tobacco status: current every day smoker Alcohol intake: former History of recent travel: No Agree to transfusion: Yes (11/04/2019) Course Vital Signs: Vital signs: Vital Signs Temperature 98.4 F 06/09/22 08:00 Pulse Rate 78 06/09/22 09:04 Respiratory Rate 18 06/09/22 09:04 Blood Pressure 170/75 06/09/22 08:00 Pulse Oximetry 96 06/09/22 09:04 Oxygen Delivery Me thod 06/09/22 09:04 MDM - SOB/Dyspnea Medical Decision Making Patient was feeling much better following treatment. His initial blood pressures were 220s to 230s. Following treatment improved into the 170s. Does show some interstitial edema on his x-ray and was provided Lasix. Patient's blood pressure started to creep back up so he was given an additional 50 of metoprolol just prior to being admitted. 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 We will admit him for observation with the new edema and elevated blood pressures. Patient was admitted to Dr. Rasheed. Patient was stable upon admission. Lab Data : 06/09/22 02:35 06/09/22 02:35 Labs/Radiology: Radiology Impressions Chest X-Ray 06/08/22 20:04 IMPRESSION: 1. Cardiomegaly and interstitial edema. 2. Bibasilar atelectasis versus infiltrate. Laboratory Results WBC 6.6 10^3/uL (4.0-10.0) 06/08/22 20:17 RBC 4.58 10^6/uL (4.1-5.3) 06/08/22 20:17 Hgb 14.7 g/dL (11.7-16.6) 06/08/22 20:17 Hct 44.6 % (42.0-52.0) 06/08/22 20:17 MCV 97.4 fl (80-94) H 06/08/22 20:17 MCH 32.1 pg (28.0-34.0) 06/08/22 20:17 MCHC 33.0 g/dL (30.0-36.0) 06/08/22 20:17 RDW 13.4 % (12.1-15.1) 06/08/22 20:17 Plt Count 155 10^3/cmm (130-400) 06/08/22 20:17 MPV 11.3 fL (7.4-10.4) H 06/08/22 20:17 Neut % (Auto) 57.0 % 06/08/22 20:17 Lymph % (Auto) 19.4 % 06/08/22 20:17 Isabella % (Auto) 12.0 % 06/08/22 20:17 Eos % (Auto) 10.6 % 06/08/22 20:17 Baso % (Auto) 0.8 % 06/08/22 20:17 Neut # (Auto) 3.76 10^3/uL (1.8-7.7) 06/08/22 20:17 Lymph # (Auto) 1.3 10^3/uL (0.8-4.8) 06/08/22 20:17 Isabella # (Auto) 0.8 10^3/uL (0.2-0.9) 06/08/22 20:17 Eos # (Auto) 0.7 10^3/uL (0.0-0.8) 06/08/22 20:17 Baso # (Auto) 0.1 10^3/uL (0.0-0.1) 06/08/22 20:17 Nucleated RBC % (auto) 0 % 06/08/22 20:17 Nucleated RBCs # 0.0 /100WBC 06/08/22 20:17 Sodium 137 mmol/L (136-145) 06/08/22 20:17 Potassium 4.7 mmol/L (3.5-5.1) 06/08/22 20:17 Chloride 102 mmol/L (98-107) 06/08/22 20:17 Carbon Dioxide 24 mmol/L (22-29) 06/08/22 20:17 Anion Gap 15.7 (5-19) 06/08/22 20:17 BUN 15 mg/dL (8-23) 06/08/22 20:17 Creatinine 1.0 mg/dL (0.7-1.2) 06/08/22 20:17 GFR Calculation 74.5 mL/min (90-130) L 06/08/22 20:17 Glucose 131 mg/dL (65-115) H 06/08/22 20:17 Calculated Osmolality 287 mOsm/kg (285-295) 06/08/22 20:17 Calcium 9.0 mg/dL (8.5-10.5) 06/08/22 20:17 Total Bilirubin 0.5 mg/dL (0.15-1.2) 06/08/22 20:17 AST 107 U/L (0-40) H 06/08/22 20:17 ALT 100 U/L (0-41) H 06/08/22 20:17 Alkaline Phosphatase 76 U/L (40-130) 06/08/22 20:17 Troponin T Baseline 15 ng/L (0-15) 06/08/22 20:17 Troponin T 120 Minute 14.75 ng/L (0-15) 06/08/22 22:05 Delta Troponin T -0.25 ABS# (0-10) L 06/08/22 22:05 C-Reactive Protein 10.7 mg/L (0.0-4.9) H 06/08/22 20:17 NT-Pro-B Natriuret Pep 752 pg/mL (0-125) H 06/08/22 22:05 Total Protein 8.0 g/dL (6.6-8.7) 06/08/22 20:17 Albumin 3.7 g/dL (3.5-5.2) 06/08/22 20:17 Globulin 4.3 g/dL (1.3-4.6) 06/08/22 20:17 TSH 2.47 uIU/mL (0.27-4.20) 06/08/22 22:05 SARS-CoV-2 Ag (Rapid) Negative (Negative) 06/08/22 20:22 EKG Data EKG 1: I personally reviewed and interpreted this EKG as follows: EKG Interpretation Date: 06/08/22 EKG interpretation time: 19:17 Interpretation: Sinus rhythm, right bundle branch block, heart rate 72, no acute ST or T wave abnormalities, CO 136, QRS 132 EKG 2: I personally reviewed and interpreted this EKG as follows: EKG Interpretation Date: 06/08/22 EKG interpretation time: 22:01 Interpretation: hr 73, sinus rhythm, RBBB, similar to previous ekg Discharge Plan Discharge Patient Disposition: Placed in Observation Admit Provider: Negrito Rasheed Clinical Impression: Hypertensive urgency, Interstitial edema, Pneumonia Coding Level of Care Code ED Digester for Chg Fwcarlos
[2022-06-08] MEDS: sodium chloride 0.9% 1,000 ML 999 ML IV (20:12)
[2022-06-08] MEDS: labetalol 5 mg/mL SDV 20mL 10 MG IVP (20:21)
[2022-06-08 20:23] LABS: Basophils # 0.1 10^3/uL (0.0-0.1); Basophils % 0.8 %; Eosinophils # 0.7 10^3/uL (0.0-0.8); Eosinophils % 10.6 %; Hematocrit 44.6 % (42.0-52.0); Hemoglobin 14.7 g/dL (11.7-16.6); Lymphocytes # 1.3 10^3/uL (0.8-4.8); Lymphocytes % 19.4 %; Mean Corpuscular Hemoglobin 32.1 pg (28.0-34.0); Mean Corpuscular Volume 97.4 fl (80-94); Mean Platelet Volume 11.3 fL (7.4-10.4); Monocytes # 0.8 10^3/uL (0.2-0.9); Neutrophils # 3.76 10^3/uL (1.8-7.7); Nucleated Red Blood Cells % 0 %; Platelet Count 155 10^3/cmm (130-400); Red Blood Count 4.58 10^6/uL (4.1-5.3); Red Cell Distribution Width 13.4 % (12.1-15.1); White Blood Count 6.6 10^3/uL (4.0-10.0)
[2022-06-08 20:41] LABS: Alanine Aminotransferase 100 U/L (0-41); Albumin Level 3.7 g/dL (3.5-5.2); Alkaline Phosphatase 76 U/L (40-130); Anion Gap 15.7 (5-19); Aspartate Amino Transferase 107 U/L (0-40); Blood Urea Nitrogen 15 mg/dL (8-23); C Reactive Protein 10.7 mg/L (0.0-4.9); Carbon Dioxide 24 mmol/L (22-29); Chloride 102 mmol/L (98-107); Globulin 4.3 g/dL (1.3-4.6); Glomerular Filtration Rate 74.5 mL/min (90-130); Glucose 131 mg/dL (65-115); Osmolality Calculated 287 mOsm/kg (285-295); Potassium 4.7 mmol/L (3.5-5.1); Sodium 137 mmol/L (136-145); Total Bilirubin 0.5 mg/dL (0.15-1.2)
[2022-06-08 20:42] LABS: Troponin(5th) Baseline 15 ng/L (0-15)
[2022-06-08 20:46] LABS: SARS Covid-2 Antigen Negative (Negative)
[2022-06-08] MEDS: ipratropium-albuterol 3 mL Neb INHALATION (20:46)
[2022-06-08] MEDS: metoprolol tartrate 1 mg/1 mL SDV 5 mL 5 MG IVP (21:13)
--- NOTE | 2022-06-08 22:05 | ECG_ITS ---
[facility] Test Date: 2022-06-08 Pat Name: Abhijit Cerna Department: Room: Gender: Male Sheep Shearer: : 1955 Requested By: Rubens Madrid Order Number: [id number] Emanuel MD: Damaso Bonilla M.D. Measurements Intervals [place] Rate: 73 P: 53 AK: 159 QRS: 26 QRSD: 137 T: 8 QT: 430 QTc: 477 Interpretive Statements SINUS RHYTHM POSSIBLE LEFT ATRIAL ENLARGEMENT [-0.1mV P-WAVE IN V1/V2] RIGHT BUNDLE BRANCH BLOCK [120+ ms QRS DURATION, UPRIGHT V1, 40+ ms S IN I/aVL/V4/V5/V6] Compared to ECG 06/08/2022 19:17:58 No significant changes Electronically Signed On 06-09-2022 7:38:54 CDT by Damaso Bonilla M.D. [email or web address] Solarbrentwood behavioral healthcare of mississippiSocialKatyuniversity hospitals [facility].[employer]/store/OM/[id number]/[id number]
[2022-06-08] MEDS: FUROsemide 10 mg/mL SDV 10mL 60 MG IVP (22:07)
[2022-06-08 22:24] LABS: Troponin 5 2HR 14.75 ng/L (0-15)
[2022-06-08 22:29] LABS: Troponin 5 2HR Delta -0.25 ABS# (0-10)
[2022-06-08] MEDS: metoprolol tartrate 50 mg Tablet PO (22:40)
--- NOTE | 2022-06-08 22:59 | P.HP_ITS ---
Providers/Chief Complaint Primary Care Provider: Erum Hicks DO Chief Complaint: sob History of Present Illness Abhijit Cerna is a 67 year old male with a past medical history of atrial fibrillation on Eliquis, CAD, dyslipidemia, hypertension, severe PRIYANKA on CPAP, obesity, who presents [facility] due to increased shortness of breath, fatigue, malaise, sinus congestion, chest pain, elevated blood pressure. Patient tells me that recently has been sick, he is received all 3 COVID vaccines, however he gets severe sinus allergies this time a year, sinus congestion, sinus pressure, sinus drainage. He was seen here in the emergency room yesterday was given doxycycline, however he continues to have symptomatology. He does not that in addition with his sinus symptoms he has been feeling increasingly short of breath, shortness of breath with exertion, some lower extremity edema. He tells me that his A. fib has been acting up, he has intermittent episodes of chest palpitations, and chest pressure. The chest pressure typically is associate with exertion, is intermittent, he is taking all his medication as prescribed, does not smoke, no fevers, no chills, Review of Systems Const: Denies: fever(s), chills, fatigue or malaise ENMT: Reports: throat pain and nasal discharge Card: Reports: chest pain Resp: Reports: dyspnea and non-productive cough GI: Denies: abdominal pain, nausea or vomiting : Denies: difficulty urinating Medications/Allergies Home Medications Medication Instructions Recorded Confirmed Last Taken Type omeprazole 20 mg tablet,delayed 20 mg PO DAILY PRN Heartburn 11/01/19 06/07/22 Unknown History release sildenafil (pulm.hypertension) 20 20 mg PO .COMPLEX #30 tabs 05/22/20 06/07/22 Unknown Rx mg tablet potassium gluconate 595 mg (99 mg) 595 mg PO QAM 06/10/21 06/07/22 11/10/21 History tablet aspirin 325 mg tablet 325 mg PO QAM 11/11/21 06/07/22 11/10/21 History magnesium oxide 400 mg PO BEDTIME 11/11/21 06/07/22 11/10/21 History melatonin 10 mg tablet 10 mg PO BEDTIME PRN Sleep 11/11/21 06/07/22 Unknown History multivitamin 1 tab PO DAILY 11/11/21 06/07/22 Unknown History valsartan 160 mg tablet 160 mg PO QAM 11/11/21 06/07/22 11/10/21 History metoprolol tartrate 50 mg tablet 50 mg PO DIRECTED #135 tabs 02/10/22 06/07/22 Unknown Rx apixaban 5 mg tablet (Eliquis) 5 mg PO BID #180 tabs 02/18/22 06/07/22 Unknown Rx sotalol 80 mg tablet 80 mg PO BID #180 tabs 02/18/22 06/07/22 Unknown Rx benzonatate 100 mg capsule 100 mg PO TID PRN cough 15 days 03/07/22 06/07/22 Unknown Rx #45 caps desloratadine 5 mg disintegrating 5 mg PO BID #30 tabs 03/07/22 06/07/22 Unknown Rx tablet fluticasone propionate 50 1 spray intranasal BID PRN nasal 03/07/22 06/07/22 Unknown Rx mcg/actuation nasal congestion #16 grams spray,suspension doxycycline hyclate 100 mg tablet 100 mg PO BID 7 days #14 tabs 06/07/22 06/07/22 Unknown Rx Allergies Allergy/AdvReac Type Severity Reaction Status Date / Time codeine Allergy VOMITTING Verified 06/08/22 19:21 lisinopril Allergy ADR-Cough Verified 06/08/22 19:21 Hxfladt-DVN-DdM Reductase Allergy Unknown Verified 06/08/22 19:21 Inhibitor STATINS SUPPORT Allergy LIVER Uncoded 06/08/22 19:21 FAILURE PFSH Acute PFSH: Medical History Acid reflux Atherosclerotic heart disease of [place] coronary artery without angina pectoris Atrial fibrillation with RVR Dyslipidemia History of inguinal hernia Hypertension Hypokalemia Pulmonary emboli Severe obstructive sleep apnea Surgical History Hx of CABG Hx of hernia repair S/P pericardial window creation Family History Brother CAD (coronary artery disease) Stroke Brother CAD (coronary artery disease) Family/Other CAD (coronary artery disease) Mother Cancer Father Dementia Sister Lung disease Other Hyperlipidemia Hypertension Denies family history of Diabetes Clotting disorder Chronic kidney disease (CKD) Suicide Anesthesia complication Bleeding disorder Social History Smoking and tobacco status: current every day smoker Alcohol intake: former History of recent travel: No Agree to transfusion: Yes (11/04/2019) Vitals/I&O/Wt Last Vital Signs Temp 98.7 F 06/08/22 19:12 Pulse 75 06/08/22 22:37 Resp 18 06/08/22 22:37 BP 183/90 06/08/22 22:37 Pulse Ox 95 06/08/22 22:37 O2 Del Method 06/08/22 20:46 Weight last 48 hrs Weight 133.81 kg Physical Exam Const: COMMON NORMALS: no acute distress and patient oriented x3 HENMT: COMMON NORMALS: normocephalic HEAD & SCALP: normocephalic Eye: COMMON NORMALS: Equal, round and reactive pupils present and EOMs intact bilaterally Neck/C-Spine: COMMON NORMALS: no JVD Resp: COMMON NORMALS: normal respiratory effort, No retractions and No use of accessory muscles AUSCULTATION: crackles and wheezes Cardio: COMMON NORMALS: no JVD, regular rate, regular rhythm, S1 normal heart sound present and S2 normal heart sound present RATE: regular rate RHYTHM: regular rhythm HEART SOUNDS: S1 normal heart sound present and S2 normal heart sound present GI: COMMON NORMALS: Normal to inspection, nondistended, normoactive bowel sounds present, Soft to palpation, non-tender, No hepatosplenomegaly present, no masses and no bruits PALPATION: Yes Soft to palpation and Yes No hepatosplenomegaly present Extremity: COMMON NORMALS: no calf tenderness NARRATIVE EXTREMITY EXAM: 1+ pitting edema bilateral extremity Neuro: COMMON NORMALS: patient oriented x3, CN's II-XII intact bilaterally, moves all extremities and no focal motor deficits Psych: COMMON NORMALS: mental status grossly normal Data : 06/08/22 20:17 06/08/22 20:17 A&P Assessment and plan (1) Hypertensive urgency: Status: Acute (2) Interstitial edema: Status: Acute (3) Pneumonia: Status: Acute (4) Shortness of breath: Status: Acute (5) Chest pain: Status: Acute Plan Hypertensive urgency -Continue sotalol 80 twice daily -Continue sildenafil -Increase metoprolol to 50 twice daily -Additional blood pressure medication, Aldactone 25 mg once daily Shortness of breath -Multifactorial from pulm edema, possibly pneumonia -Has received Lasix in the emergency room, has urinated -We will continue Lasix 40 IV every 24 hours in the morning -Has failed doxycycline therapy, start Rocephin and azithromycin -Sputum cultures, blood cultures, DuoNeb treatments -We start prednisone 40 mg daily Chest pain -Seems more pleuritic in nature, but does have a history of CAD -Serial EKGs, serial troponins, telemetry monitoring -Continue aspirin, Eliquis Atrial fibrillation -Telemetry monitoring, sotalol, Eliquis Hypertension, as above Full code Eliquis for DVT prophylaxis Attestations Medical Necessity Statement*: Patient requires hospitalization, outpatient observation, for shortness of breath, pulmonary edema, pneumonia, hypertensive urgency, chest pain Coding Level of Care Code Acute Call Or Contact Centre Manager for g Fwd Diagnoses Hypertensive urgency I16.0 Interstitial edema R60.9 Pneumonia J18.9 Shortness of breath R06.02 Chest pain R07.9
[2022-06-08 23:20] LABS: NT Pro B Type Natriuretic Pept 752 pg/mL (0-125)
[2022-06-08 23:54] LABS: C Reactive Protein 11.1 mg/L (0.0-4.9)
[2022-06-09] VITALS (11 sets, daily range): BP systolic 131–198; BP diastolic 65–91; PULSE 68–104; RESP 18–24; TEMP 36.7–37.4; O2SAT 93–96
[2022-06-09 00:01] LABS: Procalcitonin 0.08 ng/mL (0-0.5)
[2022-06-09 00:08] LABS: Thyroid Stimulating Hormone 2.47 uIU/mL (0.27-4.20)
[2022-06-09 02:50] LABS: Basophils % 0.6 %; Eosinophils # 0.1 10^3/uL (0.0-0.8); Eosinophils % 1.6 %; Hematocrit 43.6 % (42.0-52.0); Hemoglobin 14.1 g/dL (11.7-16.6); Lymphocytes # 1.1 10^3/uL (0.8-4.8); Lymphocytes % 17.9 %; Mean Corpuscular HGB Conc 32.3 g/dL (30.0-36.0); Mean Corpuscular Hemoglobin 32.3 pg (28.0-34.0); Mean Platelet Volume 11.3 fL (7.4-10.4); Monocytes # 0.6 10^3/uL (0.2-0.9); Monocytes % 9.6 %; Neutrophils # 4.44 10^3/uL (1.8-7.7); Neutrophils % 70.1 %; Nucleated Red Blood Cells % 0 %; Platelet Count 150 10^3/cmm (130-400); Red Blood Count 4.36 10^6/uL (4.1-5.3); Red Cell Distribution Width 13.4 % (12.1-15.1); White Blood Count 6.3 10^3/uL (4.0-10.0)
[2022-06-09 03:13] LABS: Blood Urea Nitrogen 15 mg/dL (8-23); Calcium 8.6 mg/dL (8.5-10.5); Carbon Dioxide 23 mmol/L (22-29); Chloride 102 mmol/L (98-107); Glomerular Filtration Rate 84.2 mL/min (90-130); Glucose 149 mg/dL (65-115); Magnesium 1.8 mg/dL (1.7-2.3); Osmolality Calculated 284 mOsm/kg (285-295); Sodium 135 mmol/L (136-145)
[2022-06-09 03:39] LABS: Glucose Point of Care 135 mg/dL (70-110)
[2022-06-09] MEDS: acetaminophen 325 mg Tablet 650 MG PO (04:02)
[2022-06-09] MEDS: cefTRIAXone 1,000 MG in sodium chloride 0.9% (plus) 50 ML 100 MG IV (04:02)
[2022-06-09] MEDS: spironolactone 25 mg Tablet 50 MG PO (04:03)
[2022-06-09] MEDS: azithromycin 500 MG in sodium chloride 0.9% 250 ML 250 MG IV (04:37)
[2022-06-09] MEDS: aspirin 325 mg Tablet PO (06:03)
[2022-06-09] MEDS: losartan 50 mg Tablet PO (06:03)
[2022-06-09] MEDS: apixaban 5 mg Tablet PO ×2 (08:47→17:12)
[2022-06-09] MEDS: sotalol 80 mg Tablet PO ×2 (08:47→17:12)
[2022-06-09] MEDS: predniSONE 20 mg Tablet 40 MG PO (08:47)
[2022-06-09] MEDS: metoprolol tartrate 50 mg Tablet PO ×2 (08:47→17:12)
[2022-06-09] MEDS: FUROsemide 10 mg/mL SDV 4mL 40 MG IVP (08:48)
[2022-06-09] MEDS: pantoprazole DR 40 mg Tablet PO (08:48)
--- NOTE | 2022-06-09 12:46 | PM.PN ---
Subjective Subjective: This morning patient was endorsing feeling slightly better He is able to lay flat Currently on room air I did tell him that I will reduce his diuretic dose and probably discharge him tomorrow Vitals/I&O/Wt Last Vital Signs Temp 98.2 F 06/09/22 12:00 Pulse 93 06/09/22 12:00 Resp 18 06/09/22 12:00 BP 132/65 06/09/22 12:00 Pulse Ox 95 06/09/22 12:00 O2 Del Method 06/09/22 12:00 06/08/22 06/09/22 06/09/22 22:59 06:59 14:59 Intake Total 1420 / 1420 360 / 360 Output Total 200 / 200 Balance 1420 / 1420 160 / 160 Weight last 48 hrs Weight 133.81 kg Physical Exam Narrative: Patient is clinically looking compensated No active signs of congestive heart failure Currently on room air S1, S2 Abdomen distended No signs of edema of legs Awake and alert Nonfocal neuro exam Dry cracked lips Data : 06/09/22 02:35 06/09/22 02:35 Micro: Microbiology 06/08/22 23:27 Blood Culture - Preliminary Blood SPECIMEN COLLECTED 06/08/22 23:23 Blood Culture - Preliminary Blood SPECIMEN COLLECTED A&P Assessment and plan (1) Shortness of breath: Status: Acute (2) Hypertensive urgency: Status: Acute (3) Pneumonia: Status: Acute (4) Interstitial edema: Status: Acute Plan Hypertensive urgency: Blood pressures improved Congestive heart failure exacerbation EF is unknown Request echo with contrast Pneumonia could not be ruled out however he does have left lower lobe infiltrate which could be pleural effusion versus atelectasis For now I will continue medical antibiotic coverage DuoNeb treatment to be continued Discontinue prednisone Reduce the dose of diuretics Patient is also endorsing dizziness which he describes as a lightheadedness Tick was moved to months ago No recent skin rash Endorsing multiple tick bites No signs of stroke Patient is endorsing orthostatic changes I did mortgage loan counselor him to be careful when he gets up from sitting position A. fib without RVR Continue Eliquis and AV salomon blocking agents Full code Cardiac diet Plan to discharge him tomorrow Attestations Medical Necessity Statement*: Plan to discharge him tomorrow Time Spent in Patient Care: 40 Coding Level of Care Code Acute Household Cook for Chg Fwd Diagnoses Shortness of breath R06.02 Hypertensive urgency I16.0 Pneumonia J18.9 Interstitial edema R60.9
--- NOTE | 2022-06-09 12:48 | USCV_ITS ---
Abhijit Cerna Age: 67 Gender: M : 1955 Exam Date: 06/09/2022 13:25 Ordering Phys: Erin Cardenas MD Technologist: Chung Harden [place] [facility] [place] Indication: chf BP: 132 / 65 HR: 96 Rhythm: Atrial fibrillation Technical Quality: Adequate MEASUREMENTS (Male / Female) Normal Values 2D ECHO LV Diastolic Diameter PLAX 3.6 cm 4.2 - 5.9 / 3.9 - 5.3 cm LV Systolic Diameter PLAX 2.1 cm IVS Diastolic Thickness 1.4 cm 0.6 - 1.0 / 0.6 - 0.9 cm IVS Systolic Thickness 1.6 cm LVPW Diastolic Thickness 1.9 cm 0.6 - 1.0 / 0.6 - 0.9 cm LVPW Systolic Thickness 2.0 cm LVOT Diameter 2.0 cm LV Ejection Fraction 2D Teich 75.3 % LV Ejection Fraction MOD 2C 62.2 % LV Ejection Fraction 2C AL 62.0 % LA Diameter 4.2 cm LA Width 3.6 cm LA Height 5.3 cm RA Width 3.8 cm RA Height 4.8 cm Aorta at Sinotubular Diameter 2.6 cm IVC Diameter 1.5 cm M-MODE Aortic Annulus Diameter 2.5 cm LA Ao Ratio MM 1.6 MV E Point Septal Separation 0.7 cm DOPPLER AV Peak Velocity 137.7 cm/s LVOT Peak Velocity 137.0 cm/s AV Area Cont Eq vti 3.5 cm squared AV Area Cont Eq pk 3.2 cm squared MV Peak Velocity 140.0 cm/s MV Area PHT 7.1 cm squared MV E' Velocity 42.0 cm/s Mitral E to MV E' Ratio 5.8 Mitral E to LV E' Lateral Ratio 5.1 Mitral E to LV E' Septal Ratio 6.9 TR Peak Velocity 175.7 cm/s TR Peak Gradient 12.3 mmHg TR Mean Velocity 139.3 cm/s TR Mean Gradient 7.9 mmHg TR Velocity Time Integral 29.6 cm Right Atrial Pressure 3.0 mmHg Pulmonary Artery Systolic Pressu 15.3 mmHg PV Peak Velocity 133.0 cm/s RV Acceleration Time 0.1 s RV Ejection Time 0.2 s RV AcT/ET 0.5 FINDINGS Left Ventricle Normal left ventricular size and systolic function, EF 68 %. Mild left ventricular hypertrophy. No regional wall motion abnormalities. Right Ventricle Normal right ventricular size and systolic function. Right Atrium The right atrium is normal in size. Left Atrium Mildly increased left atrial size. Mitral Valve Thickened mitral valve. Moderate mitral annular calcification. Aortic Valve Thickened aortic valve. Tricuspid Valve Trace to mild tricuspid valve regurgitation. Pulmonic Valve Pulmonic valve not well visualized. Pericardium Normal pericardium without effusion. Aorta Normal aortic annulus size. IVC Normal inferior vena cava. CONCLUSIONS Normal left ventricular size and systolic function, EF 68 %. Mild left ventricular hypertrophy. No regional wall motion abnormalities. Mildly increased left atrial size. Thickened mitral valve. Moderate mitral annular calcification. Trace to mild tricuspid valve regurgitation. Thickened aortic valve. There is no pericardial effusion. Technically difficult study because of the poor ultrasonic window. Comparison with the previous study is difficult because of the difference in the technical quality. Dr Jeannie Muñiz MD FACC (Electronically Signed) Final Date: 09 June 2022 23:55 S
[2022-06-09] MEDS: FUROsemide 10 mg/mL SDV 2mL 20 MG IVP (12:59)
[2022-06-09] MEDS: perflutren protein-a microsphr 0.22 mg/mL SDV 3 mL IV (14:32)
[2022-06-09 16:38] LABS: Glucose Point of Care 320 mg/dL (70-110)
--- NOTE | 2022-06-09 17:35 | PC.NURSE ---
physician notified of pts blood glucose level of 320. no new orders at this time.
[2022-06-09] MEDS: insulin lispro 100 unit/1 mL 15 UNIT SUBCUT (18:09)
[2022-06-09] MEDS: ipratropium-albuterol 3 mL Neb INHALATION (20:06)
[2022-06-09] MEDS: magnesium oxide 400 mg tablet PO (20:38)
[2022-06-09 22:57] LABS: Glucose Point of Care 152 mg/dL (70-110)
[2022-06-10] VITALS (8 sets, daily range): BP systolic 124–149; BP diastolic 70–105; PULSE 77–93; RESP 16–20; TEMP 36.3–36.8; O2SAT 94–97
[2022-06-10] MEDS: hyDROXYzine 25 mg Capsule PO (00:09)
[2022-06-10] MEDS: cefTRIAXone 1,000 MG in sodium chloride 0.9% (plus) 50 ML 1 MG IV (03:40)
[2022-06-10] MEDS: azithromycin 500 MG in sodium chloride 0.9% 250 ML 250 MG IV (04:18)
[2022-06-10] MEDS: spironolactone 25 mg Tablet 50 MG PO (04:20)
[2022-06-10 04:57] LABS: Basophils % 0.2 %; Hematocrit 42.3 % (42.0-52.0); Hemoglobin 14.1 g/dL (11.7-16.6); Lymphocytes # 1.6 10^3/uL (0.8-4.8); Lymphocytes % 16.1 %; Mean Corpuscular HGB Conc 33.3 g/dL (30.0-36.0); Mean Corpuscular Volume 95.9 fl (80-94); Mean Platelet Volume 11.5 fL (7.4-10.4); Monocytes # 0.8 10^3/uL (0.2-0.9); Monocytes % 8.2 %; Neutrophils # 7.63 10^3/uL (1.8-7.7); Neutrophils % 75.1 %; Nucleated Red Blood Cells % 0 %; Platelet Count 188 10^3/cmm (130-400); Red Blood Count 4.41 10^6/uL (4.1-5.3); Red Cell Distribution Width 13.2 % (12.1-15.1); White Blood Count 10.2 10^3/uL (4.0-10.0)
[2022-06-10] MEDS: losartan 50 mg Tablet PO (05:20)
[2022-06-10] MEDS: aspirin 325 mg Tablet PO (05:20)
[2022-06-10 05:25] LABS: Blood Urea Nitrogen 22 mg/dL (8-23); Calcium 8.9 mg/dL (8.5-10.5); Carbon Dioxide 22 mmol/L (22-29); Chloride 101 mmol/L (98-107); Glomerular Filtration Rate 74.5 mL/min (90-130); Glucose 147 mg/dL (65-115); Osmolality Calculated 288 mOsm/kg (285-295); Sodium 136 mmol/L (136-145)
[2022-06-10 06:22] LABS: Glucose Point of Care 132 mg/dL (70-110)
[2022-06-10] MEDS: apixaban 5 mg Tablet PO (09:44)
[2022-06-10] MEDS: predniSONE 20 mg Tablet 40 MG PO (09:44)
[2022-06-10] MEDS: sotalol 80 mg Tablet PO (09:44)
[2022-06-10] MEDS: pantoprazole DR 40 mg Tablet PO (09:44)
[2022-06-10] MEDS: metoprolol tartrate 50 mg Tablet PO (09:44)
--- NOTE | 2022-06-10 10:03 | P.DS_ITS ---
Discharge Providers Date of Admission: 06/08/22 22:49 Date of Discharge: June 10, 2022 Attending Provider at Admission: Negrito Rasheed MD Attending Provider at Discharge: Erin Cardenas MD Primary Care Provider: Erum Hicks DO Diagnoses at Discharge Discharge Diagnosis (1) Shortness of breath: Status: Acute (2) Hypertensive urgency: Status: Acute (3) Pneumonia: Status: Acute (4) Interstitial edema: Status: Acute Reason for Visit Reason for Visit: sob Hospital Course Hospital Course 67-year male who was admitted for worsening of shortness of breath, initially he required oxygen however with diuresis we were able to wean him off to room air, 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 Muñiz outpatient, on this visit he was diagnosed with preserved ejection fraction heart failure exacerbation, his symptoms improved with diuresis. At the time of discharge she will get Lasix and potassium supplementation. Echo did not show significant abnormalities, EF is preserved. No significant troponin delta noted. EKG without ischemic or infarctive changes. Physical Exam Narrative: Patient is clinically looking compensated No active signs of congestive heart failure Currently on room air S1, S2 Abdomen distended No signs of edema of legs Awake and alert Nonfocal neuro exam Discharge Data Studies Completed and Pending Completed Studies During Hospitalization Category Date Time Status XR chest 2V* [id number] Stat Exams 06/08/22 20:04 Completed CV. echo wo/w contrast [id number] Routine Ultrasound 06/09/22 12:48 Completed Pending at discharge Category Date Time Status Blood Culture Stat Lab 06/08/22 23:27 Results Sputum Culture and Gram Stain Stat Lab 06/08/22 23:13 Uncollected Radiology Impressions Chest X-Ray 06/08/22 20:04 IMPRESSION: 1. Cardiomegaly and interstitial edema. 2. Bibasilar atelectasis versus infiltrate. Laboratory Results WBC 10.2 10^3/uL (4.0-10.0) H 06/10/22 04:31 RBC 4.41 10^6/uL (4.1-5.3) 06/10/22 04:31 Hgb 14.1 g/dL (11.7-16.6) 06/10/22 04:31 Hct 42.3 % (42.0-52.0) 06/10/22 04:31 MCV 95.9 fl (80-94) H 06/10/22 04:31 MCH 32.0 pg (28.0-34.0) 06/10/22 04:31 MCHC 33.3 g/dL (30.0-36.0) 06/10/22 04:31 RDW 13.2 % (12.1-15.1) 06/10/22 04:31 Plt Count 188 10^3/cmm (130-400) 06/10/22 04:31 MPV 11.5 fL (7.4-10.4) H 06/10/22 04:31 Neut % (Auto) 75.1 % 06/10/22 04:31 Lymph % (Auto) 16.1 % 06/10/22 04:31 Stephens % (Auto) 8.2 % 06/10/22 04:31 Eos % (Auto) 0.0 % 06/10/22 04:31 Baso % (Auto) 0.2 % 06/10/22 04:31 Neut # (Auto) 7.63 10^3/uL (1.8-7.7) 06/10/22 04:31 Lymph # (Auto) 1.6 10^3/uL (0.8-4.8) 06/10/22 04:31 Stephens # (Auto) 0.8 10^3/uL (0.2-0.9) 06/10/22 04:31 Eos # (Auto) 0.0 10^3/uL (0.0-0.8) 06/10/22 04:31 Baso # (Auto) 0.0 10^3/uL (0.0-0.1) 06/10/22 04:31 Nucleated RBC % (auto) 0 % 06/10/22 04:31 Nucleated RBCs # 0.0 /100WBC 06/10/22 04:31 Sodium 136 mmol/L (136-145) 06/10/22 04:31 Potassium 4.0 mmol/L (3.5-5.1) 06/10/22 04:31 Chloride 101 mmol/L (98-107) 06/10/22 04:31 Carbon Dioxide 22 mmol/L (22-29) 06/10/22 04:31 Anion Gap 17.0 (5-19) 06/10/22 04:31 BUN 22 mg/dL (8-23) 06/10/22 04:31 Creatinine 1.0 mg/dL (0.7-1.2) 06/10/22 04:31 GFR Calculation 74.5 mL/min (90-130) L 06/10/22 04:31 Glucose 147 mg/dL (65-115) H 06/10/22 04:31 POC Glucose 132 mg/dL (70-110) H 06/10/22 06:10 Calculated Osmolality 288 mOsm/kg (285-295) 06/10/22 04:31 Calcium 8.9 mg/dL (8.5-10.5) 06/10/22 04:31 Magnesium 1.8 mg/dL (1.7-2.3) 06/09/22 02:35 Total Bilirubin 0.5 mg/dL (0.15-1.2) 06/08/22 20:17 AST 107 U/L (0-40) H 06/08/22 20:17 ALT 100 U/L (0-41) H 06/08/22 20:17 Alkaline Phosphatase 76 U/L (40-130) 06/08/22 20:17 Troponin T Baseline 15 ng/L (0-15) 06/08/22 20:17 Troponin T 120 Minute 14.75 ng/L (0-15) 06/08/22 22:05 Delta Troponin T -0.25 ABS# (0-10) L 06/08/22 22:05 C-Reactive Protein 11.1 mg/L (0.0-4.9) H 06/08/22 23:23 NT-Pro-B Natriuret Pep 752 pg/mL (0-125) H 06/08/22 22:05 Total Protein 8.0 g/dL (6.6-8.7) 06/08/22 20:17 Albumin 3.7 g/dL (3.5-5.2) 06/08/22 20:17 Globulin 4.3 g/dL (1.3-4.6) 06/08/22 20:17 Procalcitonin 0.08 ng/mL (0-0.5) 06/08/22 23:23 TSH 2.47 uIU/mL (0.27-4.20) 06/08/22 22:05 SARS-CoV-2 Ag (Rapid) Negative (Negative) 06/08/22 20:22 Vitals Last Vital Signs Temp 97.4 F L 06/10/22 07:29 Pulse 77 06/10/22 07:29 Resp 16 06/10/22 07:29 BP 149/79 06/10/22 07:29 Pulse Ox 97 06/10/22 07:29 O2 Del Method 06/10/22 07:29 Discharge Plan Discharge Patient Disposition: Home Condition: Stable Prescriptions: New Lasix 20 mg tablet 20 mg PO QAM PRN (Reason: edema) Qty: 30 0RF potassium chloride 20 mEq tablet extended release 20 meq PO DAILY Qty: 30 2RF Continued omeprazole 20 mg tablet,delayed release (DR/EC) 20 mg PO DAILY PRN (Reason: Heartburn) benzonatate 100 mg capsule 100 mg PO TID PRN (Reason: cough) 15 Days Qty: 45 0RF fluticasone propionate 50 mcg/actuation spray,suspension 1 spray intranasal BID PRN (Reason: nasal congestion) Qty: 16 0RF Rx Instructions: administer into each nostril sildenafil (pulm.hypertension) 20 mg tablet 20 mg PO .COMPLEX Qty: 30 1RF Rx Instructions: 1-5 tablets 1 hr prior to intercourse prn; administer doses at least 4-6 hours apart Eliquis 5 mg tablet 5 mg PO BID Qty: 180 3RF sotalol 80 mg tablet 80 mg PO BID Qty: 180 3RF multivitamin Tablet 1 tab PO QAM aspirin 325 mg Tablet 325 mg PO QAM melatonin 10 mg Tablet 10 mg PO BEDTIME PRN (Reason: Sleep) magnesium oxide 400 mg magnesium Tablet 400 mg PO BEDTIME valsartan 160 mg tablet 160 mg PO BEDTIME metoprolol tartrate 50 mg tablet See Rx Instructions .ROUTE .COMPLEX Rx Instructions: Take 1 tab (50MG) every morning and 1/2 tab (25MG) every evening for Afib. Claritin 10 mg Tablet 10 mg PO DAILY PRN (Reason: Allergy Symptoms) doxycycline hyclate 100 mg tablet 100 mg PO BID 7 Days Qty: 10 0RF Discontinued potassium gluconate 595 mg (99 mg) tablet 595 mg PO QAM Discharge Orders: Discharge Order (Routine); Ordered 06/10/22 Ordered By: Erin Cardenas Referrals: Erum Hicks DO [Primary Care Provider] - 06/13/22 2:00 pm Patient Instructions: Furosemide (By mouth), Potassium Chloride (By mouth), Opioid Safety Discharge Attestations Time Spent in Discharge Care*: less than 30 min Quality Metrics Clinical Quality Measures [ No reported AMI, CVA or VTE this stay] Coding Level of Care Code Acute Chg FW NH note Diagnoses Shortness of breath R06.02 Hypertensive urgency I16.0 Pneumonia J18.9 Interstitial edema R60.9
--- NOTE | 2022-06-10 11:00 | PC.NURSE ---
Discharge Note Patient discharged to home via private vehicle accompanied by family. Discharge instructions reviewed with patient and/or bank representative. Mobile pharmacy medications and/or prescriptions provided. Belongings/home medications returned.
== END 2022-06-10 11:28 | disposition home or self-care (01) ==
LOC: ER 22:46 → MEDSURG 23:11
PROVIDERS: Admitting Provider Family Medicine; Emergency Provider Student in an Organized Health Care Education/Training Program; PCP Family Medicine; Visit Provider Internal Medicine
DX: I16.0 Hypertensive urgency (principal); R06.02 Shortness of breath; J18.9 Pneumonia, unspecified organism; R60.9 Edema, unspecified; I11.0 Hypertensive heart disease with heart failure; I50.9 Heart failure, unspecified; I48.91 Unspecified atrial fibrillation; Z79.01 Long term (current) use of anticoagulants; I25.10 Atherosclerotic heart disease of native coronary artery without angina pectoris; E78.5 Hyperlipidemia, unspecified; G47.33 Obstructive sleep apnea (adult) (pediatric); E66.9 Obesity, unspecified; Z68.42 Body mass index [BMI] 45.0-49.9, adult; K21.9 Gastro-esophageal reflux disease without esophagitis; I25.119 Atherosclerotic heart disease of native coronary artery with unspecified angina pectoris; Z95.1 Presence of aortocoronary bypass graft; F17.210 Nicotine dependence, cigarettes, uncomplicated; Z82.49 Family history of ischemic heart disease and other diseases of the circulatory system
CPT/HCPCS: 36415; 36416; 71046; 80048; 80053; 82962; 83735; 83880; 84145; 84443; 84484; 85025; 86140; 87040; 87426; 93005; 94640; 94664; 96372; 96374; 96375; 96376; 99285; C8929; G0378; J0456; J0696; J1815; J1940; J2930; J3490; J7030; J7050; J7512; Q9956

== ENCOUNTER → 2022-07-04 10:40 | Outpatient (BNVA) | payer OTHER, MEDICARE, SELFPAY | PROVIDERS: PCP Family Medicine; Visit Provider Family Medicine | DX: I50.30 Unspecified diastolic (congestive) heart failure (principal) | CPT/HCPCS: 80048 ==

== ENCOUNTER 2022-08-07 06:02 | Outpatient (CLI) | payer OTHER, MEDICARE, SELFPAY ==
--- NOTE | 2022-08-07 06:15 | US_ITS ---
WS: [id number] RIGHT UPPER QUADRANT ULTRASOUND HISTORY: elevated LFT COMPARISON: None available. Liver: 17.1 cm in length. Echogenic dense liver. Probably due to hepatic steatosis. No mass identifie d. Portal Vein: Normal hepatopetal flow with monophasic waveform. Gallbladder: Normally distended gallbladder with no stones or wall thickening. CBD: 0.5 cm Pancreas: Poorly visualized. Obscured by bowel gas. Right kidney: 10.8 cm in length. Normal size and echogenicity. No hydronephrosis or mass. Aorta and IVC: Not well visualized. No ascites. US/US liver [id number] IMPRESSION: 1. Negative gallbladder. 2. Mild hepatomegaly with hepatic steatosis. The entire liver is not well visu alized.
[2022-08-07 11:45] LABS: Anion Gap 11.4 (5-19); Blood Urea Nitrogen 22 mg/dL (8-23); Carbon Dioxide 27 mmol/L (22-29); Chloride 102 mmol/L (98-107); Glomerular Filtration Rate 66.8 mL/min (90-130); Glucose 162 mg/dL (65-115); NT Pro B Type Natriuretic Pept 355 pg/mL (0-125); Osmolality Calculated 289 mOsm/kg (285-295); Potassium 4.4 mmol/L (3.5-5.1); Sodium 136 mmol/L (136-145)
== END 2022-08-07 06:03 | disposition home or self-care (01) ==
LOC: RAD 06:02
PROVIDERS: Internal Medicine Cardiovascular Disease; PCP Family Medicine; Visit Provider Family Medicine
DX: R79.89 Other specified abnormal findings of blood chemistry (principal); R06.02 Shortness of breath; R16.0 Hepatomegaly, not elsewhere classified; K76.0 Fatty (change of) liver, not elsewhere classified; I10 Essential (primary) hypertension
CPT/HCPCS: 76705; 80048; 83880

== ENCOUNTER 2022-09-17 08:18 | Outpatient (CLI) | payer OTHER, MEDICARE, SELFPAY ==
[2022-09-17 09:00] VITALS: BMI 46.2
--- NOTE | 2022-09-17 09:02 | ECG_ITS ---
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 Interpretive Statements NAME OF STUDY: LEXISCAN SESTAMIBI STRESS TEST INDICATION: CHF, PROCEDURE: At the baseline, the EKG revealed atrial fibrillation with a controlled ventricular response rate. Right bundle branch block pattern. Nonspecific T wave changes. The baseline heart was 67 bpm with a blood pressue of 145/90 mm of Hg Lexiscan was infused over a period of 20 seconds. A total of 0.4 milligrams of Lexiscan was infused. The stress phase was continued for a total of 5 minutes. Heart rate at the end of the stress phase was 68 bpm with a blood pressure 131/80 mm of Hg. The EKG at the peak infusion revealed no significant changes. Sestamibi was injected 20 seconds after the Lexiscan infusion. Heart rate at the end of the recovery phase was 53 bpm with a blood pressure of 134/78 mm of Hg. CONCLUSION: 1. No significant EKG changes with the LexiScan infusion 2. No LexiScan induced chest pain or cardiac arrhythmia 3. Normal blood pressure and heart rate response 4. Sestamibi/sestamibi perfusion scan pending; see separate report. 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 [id number]
--- NOTE | 2022-09-17 09:02 | NMCV_ITS ---
NM alessio perf SPECT r/s* [id number] Abhijit Cerna Age: 67 Gender: M : 1955 Exam Date: 09/17/2022 09:02 Ordering Phys: Jeannie Muñiz MD ([email or web address]) Technologist: KAREN Braxton Exam Location: [facility] Indications: CORONARY ANGIOPLASTY STATUS; ATHEROSCLEROTIC HEART DISEASE OF [place] CORONARY ARTERY STRESS TEST Please see separate stress test report in [facility] for full findings IMAGE PROTOCOL Rest/Stress 1 Lexiscan Day Radiopharmaceutical Dose (mCi) Administration Site Administered by Rest: Tc-99m 10.6 IV KAREN Arboleda Sestamibi Stress:Tc-99m 33.0 IV KAREN Arboleda Sestamibi Rest: 17-Sep-2022 60 Discovery 630 Stress: 17-Sep-2022 30 Discovery 630 0.4mg Lexiscan. Images obtained in supine and prone position. SPECT RESULTS Technical Quality: Excellent Raw Data Analysis: Normal Image Corrections: No attenuation or motion correction applied Summed Stress Score: 3 Summed Rest Score: 12 Summed Difference Score: 0 PERFUSION FINDINGS Small to moderate area of moderately decreased tracer uptake was noted in the basal, mid and apical inferior, mid inferolateral and apical lateral regions. No significant reversibility was noted in these regions. FUNCTIONAL RESULTS (calculated via Gated SPECT) Stress Image LV EF (%): 81 Stress EDV (mL):109 TID: 1.03 Stress ESV (mL):21 FUNCTIONAL FINDINGS: Segmental wall motion analysis revealing no gross wall motion abnormalities IMPRESSIONS 1. Myocardial perfusion imaging revealing small to moderate area of persistent decreased tracer uptake in the inferior and inferolateral regions suggesting myocardial scarring versus attenuation artifact 2. Normal LV ejection fraction of 81%. 3. LV wall motion analysis revealing no gross wall motion abnormalities. 4. Normal LV volume Low probability for coronary ischemia, based on the above findings Compared to the study from 07/20/2020, there may not be a significant change Dr Jeannie Muñiz MD FAC (Electronically Signed) Final Date: 17 September 2022 18:17 S
[2022-09-17] MEDS: regadenoson 0.4 Mg/5 ml Syringe IVP (10:40)
[2022-09-17 10:54] VITALS: BP 134/78; PULSE 52
== END 2022-09-17 08:19 | disposition home or self-care (01) ==
LOC: CDL 08:20
PROVIDERS: PCP Family Medicine; Visit Provider Internal Medicine Cardiovascular Disease
DX: I50.9 Heart failure, unspecified (principal); I25.10 Atherosclerotic heart disease of native coronary artery without angina pectoris; Z98.61 Coronary angioplasty status
CPT/HCPCS: 36415; 78452; 93017; 96374; A9500; J2785

== ENCOUNTER 2022-12-15 06:01 | Outpatient (CLI) | payer OTHER, MEDICARE, SELFPAY ==
--- NOTE | 2022-12-15 06:30 | CT_ITS ---
WS: [id number] CTA THORACIC TECHNIQUE: Noncontrast and Contrast enhanced CTA of the thoracic aorta with coronal and sagittal refo rmatted images and maximum intensity projection (MIP) images. CLINICAL INFORMATION: I25.118 - Atherosclerotic heart disease of [place] coronar... COMPARISON: CTA [address] lung screening 2020 DLP: 1098.[address] scans at [facility] use at least one of these dose optimization techniques: automated e xposure control; mA and/or kV adjustment per patient size (includes targeted exams where dose is matc hed to clinical indication); or iterative reconstruction. FINDINGS: Sternotomy with prior CABG. Slightly prominent ascending thoracic aorta measuring 3.4 cm. Cardiomegal y. Aortic calcification. Coronary calcification. Proximal main pulmonary arteries are normal. No medi astinal or hilar lymphadenopathy. Small LEFT pleural effusion. Slight LEFT basilar atelectasis. Few subcentimeter noncalcified nodules unchanged since the prior CT lung screening. Mild chronic emphysematous changes. Hypertrophic changes thoracic spine. Adrenal glands are normal. Splenic granulomas. Fatty atrophy of the pancreas. Tiny esophageal hiatal hernia. CT/CT angio chest [id number] IMPRESSION: 1. Prior sternotomy with CABG. Slightly prominent ascending thoracic aorta margot suring 3.4 CM. Normal caliber descending thoracic aorta. 2. Aortic calcification. Coronary calcification. 3. Tiny LEFT pleural effusion. Slight LEFT basilar atelectasis. 4. A few small nodules in the LEFT lower lobe measuring 4 to 5 mm unchanged si nce the prior exam. 5. No other acute findings.
[2022-12-15 06:48] LABS: Blood Urea Nitrogen 13 mg/dL (8-23); Glomerular Filtration Rate 74.5 mL/min (90-130)
[2022-12-15] MEDS: iohexol 350 mg/mL 500 mL Btl (per mL) IV (06:58)
== END 2022-12-15 06:02 | disposition home or self-care (01) ==
LOC: RAD 06:03
PROVIDERS: Radiology Neuroradiology; PCP Family Medicine; Visit Provider Family Medicine
DX: I25.118 Atherosclerotic heart disease of native coronary artery with other forms of angina pectoris (principal); J90 Pleural effusion, not elsewhere classified; R91.8 Other nonspecific abnormal finding of lung field; J98.11 Atelectasis; Z95.1 Presence of aortocoronary bypass graft; I70.0 Atherosclerosis of aorta; I25.10 Atherosclerotic heart disease of native coronary artery without angina pectoris
CPT/HCPCS: 71275; 82565; 84520; Q9967

== ENCOUNTER → 2023-05-05 07:56 | Outpatient (BNVA) | payer OTHER, MEDICARE, SELFPAY | PROVIDERS: PCP Family Medicine; Visit Provider Family Medicine | DX: Z12.5 Encounter for screening for malignant neoplasm of prostate (principal); I10 Essential (primary) hypertension | CPT/HCPCS: 80053; 80061; 82043; 83036; 85025; G0103 ==

== ENCOUNTER 2023-05-15 18:19 | Emergency (ER) | payer OTHER, MEDICARE, SELFPAY ==
[2023-05-15 18:30] VITALS: PULSE 84; RESP 16; TEMP 36.6; O2SAT 95; BMI 45.4
--- NOTE | 2023-05-15 18:44 | XRR_ITS ---
PROCEDURE INFORMATION: Exam: XR Chest Exam date and time: 05/15/2023 7:11 PM Age: 68 years old Clinical indication: Pain; Chest pressure; Prior surgery; Surgery date: 6+ months; Surgery type: Cabg; Patient HX: C/O chest tightness TECHNIQUE: Imaging protocol: Radiologic exam of the chest. Views: 1 view. COMPARISON: CR XR chest 2V* [id number] 06/08/2022 8:38 PM FINDINGS: Lungs: Lung volumes are somewhat decreased which may be due to body habitus. No infiltrates or overt CHF. Pleural spaces: Unremarkable. No pleural effusion. No pneumothorax. Heart/Mediastinum: Heart appears mildly enlarged, accentuated by decreased lung volumes and portable technique. Bones/joints: Prior median sternotomy otherwise unremarkable a for age. No acute abnormalities. XR/XR chest 1V portable [id number] IMPRESSION: Mild cardiomegaly, decreased lung volumes, otherwise negative chest.
--- NOTE | 2023-05-15 18:44 | ECG_ITS ---
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 Measurements Intervals [place] Rate: 80 P: 0 [place]: 0 QRS: 22 QRSD: 154 T: 6 QT: 436 QTc: 504 Interpretive Statements ATRIAL FIBRILLATION RIGHT BUNDLE BRANCH BLOCK [120+ ms QRS DURATION, UPRIGHT V1, 40+ ms S IN I/aVL/V4/V5/V6] Compared to ECG 06/08/2022 22:01:30 Sinus rhythm no longer present Electronically Signed On 05-16-2023 14:42:39 CDT by Abad Glover M.D. [id number] f
[2023-05-15 19:02] VITALS: BP 132/78; PULSE 65; O2SAT 96
[2023-05-15 19:03] LABS: Basophils # 0.1 10^3/uL (0.0-0.1); Basophils % 0.8 %; Eosinophils # 0.2 10^3/uL (0.0-0.8); Eosinophils % 3.7 %; Hematocrit 41.2 % (37-53); Lymphocytes % 31.6 %; Mean Corpuscular HGB Conc 33.7 g/dL (30-55); Mean Corpuscular Hemoglobin 31.8 pg (27-33); Mean Corpuscular Volume 94.3 fl (82-101); Mean Platelet Volume 10.9 fL (7.4-10.4); Monocytes # 0.8 10^3/uL (0.2-0.9); Monocytes % 13.2 %; Neutrophils # 3.15 10^3/uL (1.8-7.7); Neutrophils % 50.5 %; Nucleated Red Blood Cells % 0 %; Platelet Count 177 10^3/cmm (157-399); Red Blood Count 4.37 10^6/uL (3.85-5.65); Red Cell Distribution Width 13.5 % (12.1-15.1); White Blood Count 6.23 10^3/uL (3.29-11.43)
[2023-05-15 19:27] LABS: Alanine Aminotransferase 59 U/L (0-41); Albumin Level 3.5 g/dL (3.5-5.2); Alkaline Phosphatase 64 U/L (40-130); Anion Gap 12.7 (5-19); Aspartate Amino Transferase 55 U/L (0-40); Blood Urea Nitrogen 15 mg/dL (8-23); Calcium 8.5 mg/dL (8.5-10.5); Carbon Dioxide 25 mmol/L (22-29); Chloride 102 mmol/L (98-107); Globulin 3.7 g/dL (1.3-4.6); Glomerular Filtration Rate 74.3 mL/min (90-130); Glucose 170 mg/dL (65-115); Osmolality Calculated 287 mOsm/kg (285-295); Potassium 3.7 mmol/L (3.5-5.1); Sodium 136 mmol/L (136-145); Total Bilirubin 0.4 mg/dL (0.15-1.2); Total Protein 7.2 g/dL (6.6-8.7)
[2023-05-15 19:37] LABS: Creatine Phosphokinase 352 U/L (39-308)
--- NOTE | 2023-05-15 19:38 | PC.NURSE ---
Critical lab of CK reported to physician. No new orders received at this time.
--- NOTE | 2023-05-15 20:09 | ECG_ITS ---
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 Measurements Intervals [place] Rate: 80 P: 0 [place]: 0 QRS: 12 QRSD: 157 T: 10 QT: 441 QTc: 509 Interpretive Statements ATRIAL FIBRILLATION RIGHT BUNDLE BRANCH BLOCK [120+ ms QRS DURATION, UPRIGHT V1, 40+ ms S IN I/aVL/V4/V5/V6] Compared to ECG 05/15/2023 18:48:01 No significant changes Electronically Signed On 05-16-2023 14:42:25 CDT by Abad Glover M.D. [id number]
[2023-05-15 20:16] VITALS: BP 165/63; PULSE 80; RESP 16; O2SAT 96
[2023-05-15 20:35] LABS: Troponin(5th) Baseline 12 ng/L (0-15)
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
[2023-05-15 21:31] LABS: Troponin 5 2HR 11.49 ng/L (0-15); Troponin 5 2HR Delta -0.51 ABS# (0-10)
[2023-05-15 22:25] VITALS: BP 111/63; PULSE 72; RESP 18; O2SAT 96
== END 2023-05-15 22:29 | disposition home or self-care (01) ==
PROVIDERS: Emergency Provider Emergency Medicine; PCP Family Medicine
DX: R07.89 Other chest pain (principal); G47.33 Obstructive sleep apnea (adult) (pediatric)
CPT/HCPCS: 36415; 71045; 80053; 82550; 84484; 85025; 93005; 99285

== ENCOUNTER → 2023-08-28 11:07 | Outpatient (BNVA) | payer OTHER, MEDICARE, SELFPAY | PROVIDERS: PCP Family Medicine; Visit Provider Nurse Practitioner Family | DX: R53.81 Other malaise (principal); R52 Pain, unspecified; J02.9 Acute pharyngitis, unspecified; U07.1 COVID-19 | CPT/HCPCS: 87426; 87880 ==

== ENCOUNTER 2023-10-16 18:38 | Emergency (ER) | payer OTHER, MEDICARE, SELFPAY ==
[2023-10-16 18:49] VITALS: BP 158/68; PULSE 90; RESP 20; TEMP 36.4; O2SAT 98
--- NOTE | 2023-10-16 19:03 | XRR_ITS ---
PROCEDURE INFORMATION: Exam: XR Chest Exam date and time: 10/16/2023 7:53 PM Age: 68 years old Clinical indication: Patient HX: Palpitations; Ex smoker; HX cabg TECHNIQUE: Imaging protocol: Radiologic exam of the chest. Views: 1 view. COMPARISON: CR XR chest 1V portable [id number] 05/15/2023 7:11 PM FINDINGS: Lungs: No focal consolidation impression. Pleural spaces: Unremarkable. No pleural effusion. No pneumothorax. Heart/Mediastinum: Unremarkable. No cardiomegaly. Bones/joints: Status post median sternotomy and CABG. XR/XR chest 1V [id number] IMPRESSION: No focal consolidation impression.
--- NOTE | 2023-10-16 19:04 | ECG_ITS ---
[facility] Test Date: 2023-10-16 Pat Name: Abhijit Cerna Department: Room: Gender: Male Forensic Examiner: : 1955 Requested By: Lilly Bardales Order Number: [id number] Emanuel MD: Jeannie Muñiz M.D. Measurements Intervals [place] Rate: 93 P: 0 HI: 0 QRS: 40 QRSD: 140 T: 0 QT: 383 QTc: 478 Interpretive Statements ATRIAL FIBRILLATION RIGHT BUNDLE BRANCH BLOCK [120+ ms QRS DURATION, UPRIGHT V1, 40+ ms S IN I/aVL/V4/V5/V6] Compared to ECG 05/15/2023 20:11:39 No significant changes Electronically Signed On 10-17-2023 21:55:32 [employer] by Jeannie Muñiz M.D. [id number]
[2023-10-16 19:34] LABS: Basophils # 0.1 10^3/uL (0.0-0.1); Basophils % 0.9 %; Eosinophils # 0.3 10^3/uL (0.0-0.8); Eosinophils % 4.1 %; Hematocrit 44.9 % (37-53); Lymphocytes # 2.2 10^3/uL (0.8-4.8); Lymphocytes % 32.4 %; Mean Corpuscular HGB Conc 34.3 g/dL (30-55); Mean Corpuscular Hemoglobin 32.2 pg (27-33); Mean Corpuscular Volume 93.7 fl (82-101); Mean Platelet Volume 11.1 fL (7.4-10.4); Monocytes # 0.9 10^3/uL (0.2-0.9); Monocytes % 12.7 %; Neutrophils # 3.41 10^3/uL (1.8-7.7); Neutrophils % 49.8 %; Nucleated Red Blood Cells % 0 %; Platelet Count 220 10^3/cmm (157-399); Red Blood Count 4.79 10^6/uL (3.85-5.65); Red Cell Distribution Width 13.3 % (12.1-15.1); White Blood Count 6.85 10^3/uL (3.29-11.43)
[2023-10-16 19:51] VITALS: BP 200/125; PULSE 91; RESP 18; O2SAT 96
--- NOTE | 2023-10-16 19:53 | W.ED.CHESTPA ---
HPI - Chest Pain General: Chief Complaint: Chest Pain Stated Complaint: Chest pain nervous dizzy legs weak Time Seen by Provider: 10/16/23 19:42 Source: patient Mode of arrival: ambulatory Limitations: no limitations History of Present Illness: Patient presents emergency department today for evaluation treatment of generally feeling unwell, chest tightness across the chest and between his shoulder blades and reports of heart fluttering. Patient states he has a history of A-fib. He reports being on sotalol for 15+ years. He reports that after his open heart surgery approximately 6 years ago he started metoprolol. Patient states he is supposed to be taking metoprolol 1 tablet in the morning and half tab at night. He admits that for the last week or so he has been lazy and only taking 1 full tablet at night. He reports that for the last week or so he has been having the symptoms of discomfort across his chest, occasionally between his shoulder blades, and feeling like there is a bird in his chest. Patient states he had COVID back in August. While he has not had any continued cough, he states he has never really feel like he has recovered. He also states he had cataract surgery on Thursday. He admits to significant anxiety and almost seems to have a little PTSD as he states he got COVID 2 days after having his last cataract surgery. He has been treated for significant anxiety in the past but had stopped taking his medications. Chart review shows he was seen in urgent care today for the similar symptoms and they were suspicious for anxiety. They did provide him medication to start back on however, he has only had 1 dose and has not noticed any improvement of his symptoms. He reports a significant history of fluid around his heart requiring a pericardial window placement. Review of Systems General: Reports: 10 or more systems reviewed and unremarkable except in HPI and below PFSH ED PFSH: Medical History Post-COVID syndrome Hx: recurrent pneumonia Pharyngitis Chest pain Shortness of breath Interstitial edema Hypertensive urgency History of inguinal hernia Pulmonary emboli Dyslipidemia Severe obstructive sleep apnea Atrial fibrillation with RVR Atherosclerotic heart disease of [place] coronary artery without angina pectoris Hypokalemia Acid reflux Hypertension Surgical History S/P pericardial window creation 2002- [facility] Hx of hernia repair Hx of CABG Family History Brother CAD (coronary artery disease) Stroke Brother CAD (coronary artery disease) Family/Other CAD (coronary artery disease) Mother Cancer Father Dementia Sister Lung disease Other Hyperlipidemia Hypertension Denies family history of Diabetes Clotting disorder Chronic kidney disease (CKD) Suicide Anesthesia complication Bleeding disorder Social History Smoking and tobacco/nicotine status: former use of tobacco/nicotine Alcohol intake: former Substance/Drug Use: never Agree to transfusion: Yes (11/04/2019) Physical Exam Const: COMMON NORMALS: no acute distress, patient oriented x3 and alert HENMT: COMMON NORMALS: normocephalic, atraumatic, hearing grossly normal bilaterally and moist oral mucous membranes HEAD & SCALP: normocephalic and atraumatic Eye: COMMON NORMALS: Equal, round and reactive pupils present, EOMs intact bilaterally and conjunctivae normal CONJUNCTIVA: Yes conjunctivae normal PUPIL: Yes Equal, round and reactive pupils present Neck/C-Spine: COMMON NORMALS: full ROM and no JVD Lymph: LYMPHATIC: no lymphadenopathy noted Chest: OTHER: Patient with a well-healed, vertical sternal scar present. Resp: COMMON NORMALS: normal respiratory effort, No retractions, No use of accessory muscles and clear to auscultation bilaterally AUSCULTATION: clear to auscultation bilaterally Cardio: COMMON NORMALS: no JVD OTHER: Irregularly irregular heartbeat GI: OTHER: Abdomen is soft. Nontender on palpation. Back/Pelvis: COMMON NORMALS: no thoracic nor lumbar tenderness and thoraco-lumbar ROM normal Extremity: COMMON NORMALS: normal to inspection, full ROM and capillary refill normal Neuro: COMMON NORMALS: patient oriented x3 SENSORIUM/ORIENTATION: Yes alert Psych: COMMON NORMALS: mental status grossly normal, Normal thought process present, cooperative, normal affect and activity/motor behavior normal MOOD & AFFECT: Yes anxious THOUGHT PROCESS: Normal thought process present Skin: COMMON NORMALS: no rashes or lesions noted and no wounds GENERAL SKIN EXAM: no rashes or lesions noted Course Vital Signs: Vital signs: Vital Signs Temperature 97.5 F L 10/16/23 18:49 Pulse Rate 87 10/16/23 20:48 Respiratory Rate 24 H 10/16/23 20:48 Blood Pressure 149/74 10/16/23 20:48 Pulse Oximetry 97 10/16/23 20:48 MDM - Chest Pain Medical Decision Making Patient presents to the ER today for evaluation treatment of acute worsening of several weeks of generalized chest discomfort, fluttering sensation in his chest and not feeling quite well. Patient had COVID a few weeks ago and states he feels he never fully recovered. He also was concerned as he has had some elevated blood pressure readings the last couple of weeks. Patient's evaluation here in the emergency department revealed no acute concerns. Patient is currently in A-fib but no RVR. Patient's troponins are unremarkable, BNP is minimally elevated from his typical baseline, and chest x-ray is negative. Patient did have some elevated blood pressure readings while he was here in the emergency department however, he also had several normal. 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 I asked that he continue to monitor his blood pressure through the weekend until he is seen and evaluated by his doctor as he may require some adjustment on his blood pressure medicines. Patient has only taken 1 dose of his new antianxiety/antidepressant medication. Encouraged him to continue taking this medication. I also encouraged him to get back to taking his metoprolol as prescribed as he admits he is not taking it as he is supposed to be and has not been for the last several weeks. Patient was given strict return precautions for change or worsening in chest pains, dizziness, severe headache, vision loss, nausea or vomiting, diaphoresis, or shortness of breath. Patient verbalizes understanding and agreement to treatment plan. Differential Diagnosis Unlikely acute massive pulmonary embolism, acute respiratory failure, acute myocardial infarction, cardiac arrest or sudden cardiac Lab Data 10/16/23 19:26 10/16/23 19:26 Radiology Impressions Chest X-Ray 10/16/23 19:03 IMPRESSION: No focal consolidation impression. Laboratory Results WBC 6.85 10^3/uL (3.29-11.43) 10/16/23 19: RBC 4.79 10^6/uL (3.85-5.65) 10/16/23 19: Hgb 15.40 g/dL (11.27-16.99) 10/16/23 19: Hct 44.9 % (37-53) 10/16/23 19: MCV 93.7 fl (82-101) 10/16/23 19: MCH 32.2 pg (27-33) 10/16/23 19: MCHC 34.3 g/dL (30-55) 10/16/23 19: RDW 13.3 % (12.1-15.1) 10/16/23: Plt Count 220 10^3/cmm (157-399) 10/16/23 19: MPV 11.1 fL (7.4-10.4) H 10/16/23 19: Neut % (Auto) 49.8 % 10/16/23 19: Lymph % (Auto) 32.4 % 10/16/23 19: [place] % (Auto) 12.7 % 10/16/23: Eos % (Auto) 4.1 % 10/16/23: Baso % (Auto) 0.9 % 10/16/23: Neut # (Auto) 3.41 10^3/uL (1.8-7.7) 10/16/23 19: Lymph # (Auto) 2.2 10^3/uL (0.8-4.8) 10/16/23: [place] # (Auto) 0.9 10^3/uL (0.2-0.9) 10/16/23: Eos # (Auto) 0.3 10^3/uL (0.0-0.8) 10/16/23: Baso # (Auto) 0.1 10^3/uL (0.0-0.1) 10/16/23: Nucleated RBC % (auto) 0 % 10/16/23: Nucleated RBCs # 0.0 /100WBC 10/16/23 19: Sodium 136 mmol/L (136-145) 10/16/23 19: Potassium 4.2 mmol/L (3.5-5.1) 10/16/23 19: Chloride 99 mmol/L (98-107) 10/16/23 19: Carbon Dioxide 26 mmol/L (22-29) 10/16/23 19: Anion Gap 15.2 (5-19) 10/16/23 19: BUN 21 mg/dL (8-23) 10/16/23 19: Creatinine 1.0 mg/dL (0.7-1.2) 10/16/23: GFR Calculation 74.3 mL/min (90-130) L 10/16/23 19: Glucose 116 mg/dL (65-115) H 10/16/23: Calculated Osmolality 286 mOsm/kg (285-295) 10/16/23: Calcium 9.5 mg/dL (8.5-10.5) 10/16/23: Total Bilirubin 0.4 mg/dL (0.15-1.2) 10/16/23: AST 49 U/L (0-40) H 10/16/23: ALT 42 U/L (0-41) H 10/16/23: Alkaline Phosphatase 75 U/L (40-130) 10/16/23 19: Troponin T Baseline 17 ng/L (0-15) H 10/16/23 19: Troponin T 120 Minute 14.51 ng/L (0-15) 10/16/23 21:04 Delta Troponin T -2.49 ABS# (0-10) L 10/16/23 21:04 NT-Pro-B Natriuret Pep 1117 pg/mL (0-125) H 10/16/23 19: Total Protein 7.8 g/dL (6.6-8.7) 10/16/23: Albumin 3.8 g/dL (3.5-5.2) 10/16/23 19: Globulin 4.0 g/dL (1.3-4.6) 10/16/23 19: TSH 4.84 uIU/mL (0.27-4.20) H 10/16/23 19: Urine Color Yellow (Yellow) 10/16/23 20: Urine Appearance Clear (CLEAR) 10/16/23 20: Urine pH 5 (5-7) 10/16/23 20:34 Ur Specific [place] 1.020 (1.005-1.030) 10/16/23 20:34 Urine Protein Trace (Negative) 10/16/23 20: Urine Glucose (UA) Norm (Normal) 10/16/23 20:34 Urine Ketones 1+ (Negative) H 10/16/23 20:34 Urine Blood Neg (Negative) 10/16/23 20:34 Urine Nitrate Negative (Negative) 10/16/23 20:34 Urine Bilirubin Neg (Negative) 10/16/23 20:34 Urine Urobilinogen Norm mg/dL (Negative) 10/16/23 20:34 Ur Leukocyte Esterase Negative (Negative) 10/16/23 20:34 Urine RBC 0-4 /hpf (0-2) H 10/16/23 20:34 Urine WBC 0-4 /hpf (0-5) H 10/16/23 20:34 Ur Squamous Epith Cells 0-4 /hpf (0-5) H 10/16/23 20:34 Amorphous Sediment Not Reportable 10/16/23 20:34 Urine Bacteria Trace /hpf (NONE) 10/16/23 20:34 Urine Mucus Trace /hpf 10/16/23 20:34 All radiology interpretation(s) finalized by discharge Discharge Plan Discharge Patient Disposition: Home Clinical Impression: A-fib, DELILAH (generalized anxiety disorder), Type 2 diabetes mellitus, without long-term current use of insulin, Chest pain Hypertension Qualifiers: Hypertension type: primary hypertension Qualified Code(s): I10 - Essential (primary) hypertension Condition: Stable Prescriptions: No Action omeprazole 20 mg tablet,delayed release (DR/EC) 20 mg PO DAILY PRN (Reason: Heartburn) fluticasone propionate 50 mcg/actuation spray,suspension 1 spray intranasal BID PRN (Reason: nasal congestion) Qty: 16 0RF Rx Instructions: administer into each nostril triamcinolone acetonide 0.1 % cream 1 applic topical BID Qty: 453.6 0RF citalopram 10 mg tablet 10 mg PO DAILY Qty: 30 0RF sildenafil (pulm.hypertension) 20 mg tablet 20 mg PO .COMPLEX Qty: 30 1RF Rx Instructions: 1-5 tablets 1 hr prior to intercourse prn; administer doses at least 4-6 hours apart Eliquis 5 mg tablet See Rx Instructions .ROUTE .COMPLEX Qty: 180 4RF Dose Instruction: TAKE 1 TABLET BY MOUTH TWICE DAILY Rx Instructions: TAKE 1 TABLET BY MOUTH TWICE DAILY sotalol 80 mg tablet See Rx Instructions .ROUTE .COMPLEX Qty: 180 2RF Dose Instruction: TAKE 1 TABLET BY MOUTH TWICE DAILY Rx Instructions: TAKE 1 TABLET BY MOUTH TWICE DAILY metoprolol tartrate 50 mg tablet See Rx Instructions .ROUTE .COMPLEX Qty: 135 3RF Dose Instruction: TAKE 1 TABLET BY MOUTH EVERY MORNING and ONE-HALF EVERY EVENING FOR afib Rx Instructions: TAKE 1 TABLET BY MOUTH EVERY MORNING and ONE-HALF EVERY EVENING FOR afib furosemide 20 mg tablet See Rx Instructions .ROUTE .COMPLEX Qty: 270 2RF Dose Instruction: TAKE THREE TABLETS BY MOUTH EVERY MORNING NEEDED FOR edema Rx Instructions: TAKE THREE TABLETS BY MOUTH EVERY MORNING NEEDED FOR edema (DME) auto titrating CPAP 12-16 cm and supplies See Rx Instructions .Route .MEDSUPPLY Qty: 1 0RF Rx Instructions: As directed ezetimibe 10 mg tablet See Rx Instructions .ROUTE .COMPLEX Qty: 90 1RF Dose Instruction: TAKE ONE TABLET BY MOUTH EVERY DAY Rx Instructions: TAKE ONE TABLET BY MOUTH EVERY DAY potassium chloride 20 mEq tablet,ER particles/crystals See Rx Instructions .ROUTE .COMPLEX Qty: 90 1RF Dose Instruction: TAKE 1 TABLET BY MOUTH EVERY DAY Rx Instructions: TAKE 1 TABLET BY MOUTH EVERY DAY valsartan 160 mg tablet See Rx Instructions .ROUTE .COMPLEX Qty: 90 2RF Dose Instruction: TAKE 1 TABLET BY MOUTH EVERY DAY Rx Instructions: TAKE 1 TABLET BY MOUTH EVERY DAY aspirin 325 mg Tablet 325 mg PO QAM melatonin 10 mg Tablet 10 mg PO BEDTIME PRN (Reason: Sleep) magnesium oxide 400 mg magnesium Tablet 400 mg PO BEDTIME Claritin 10 mg Tablet 10 mg PO DAILY PRN (Reason: Allergy Symptoms) Discharge Orders: Discharge ED (Routine); Ordered 10/16/23 Ordered By: Lilly Mcdaniel Referrals: Erum Hicks DO [Primary Care Provider] - Discharge Diet: Usual diet Discharge Activity: Increase activity as tolerated Patient Instructions: A-fib (Atrial Fibrillation) (ED), Hypertension (ED) Activity Restrictions/Additional Instructions: Lab work today is generally unremarkable. There are no acute cardiac concerns today. Your EKG does show that you are in atrial fibrillation however, we see no signs of a rapid ventricular response. Your chest x-ray is clear of any signs of concern as well. Your blood pressure was somewhat elevated while you were here however, we would like you to continue monitoring your blood pressures at home. Please call your doctor first thing on [place] morning to discuss follow-up appointment from your ER visit today to discuss the possibility of needing some of your medications adjusted. However, if during the weekend you develop worsening chest pains, increased shortness of breath, elevated blood pressure readings leading to dizziness, severe headache, or loss/blurry vision you need to return back to the emergency department. Coding Level of Care Code ED Electronics Maintenance Technician for Ivonne Mora
[2023-10-16 19:56] LABS: Troponin(5th) Baseline 17 ng/L (0-15)
[2023-10-16 20:01] VITALS: BP 146/67; PULSE 93; RESP 20; O2SAT 97
[2023-10-16 20:07] LABS: Alanine Aminotransferase 42 U/L (0-41); Albumin Level 3.8 g/dL (3.5-5.2); Alkaline Phosphatase 75 U/L (40-130); Anion Gap 15.2 (5-19); Aspartate Amino Transferase 49 U/L (0-40); Blood Urea Nitrogen 21 mg/dL (8-23); Calcium 9.5 mg/dL (8.5-10.5); Carbon Dioxide 26 mmol/L (22-29); Chloride 99 mmol/L (98-107); Glomerular Filtration Rate 74.3 mL/min (90-130); Glucose 116 mg/dL (65-115); Osmolality Calculated 286 mOsm/kg (285-295); Potassium 4.2 mmol/L (3.5-5.1); Sodium 136 mmol/L (136-145); Thyroid Stimulating Hormone 4.84 uIU/mL (0.27-4.20); Total Bilirubin 0.4 mg/dL (0.15-1.2); Total Protein 7.8 g/dL (6.6-8.7)
[2023-10-16 20:36] LABS: NT Pro B Type Natriuretic Pept 1117 pg/mL (0-125)
[2023-10-16] MEDS: sodium chloride 0.9% 500 ML IV (20:44)
[2023-10-16 20:48] VITALS: BP 149/74; PULSE 87; RESP 24; O2SAT 97
[2023-10-16 20:51] LABS: Add Urine Microscopic? YES; Bilirubin Urine Neg (Negative); Blood Urine Neg (Negative); Glucose Urine UA Norm (Normal); Ketones Urine 1+ (Negative); Leukocyte Esterase Urine Negative (Negative); Nitrate Urine Negative (Negative); Protein Urine Trace (Negative); Squamous Epithelial Cell Urine 0-4 /hpf (0-5); Urine Appearance Clear (CLEAR); Urine Color Yellow (Yellow); Urobilinogen Urine Norm (Negative); pH Urine 5 (5-7)
[2023-10-16 20:52] LABS: Bacteria Urine TRACE /hpf; Mucus Urine TRACE /hpf; RBC Urine 0-4 /hpf (0-2); WBC Urine 0-4 /hpf (0-5)
--- NOTE | 2023-10-16 21:04 | ECG_ITS ---
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 Measurements Intervals [place] Rate: 81 P: 0 NC: 0 QRS: 62 QRSD: 137 T: 5 QT: 435 QTc: 507 Interpretive Statements ATRIAL FIBRILLATION RIGHT BUNDLE BRANCH BLOCK [120+ ms QRS DURATION, UPRIGHT V1, 40+ ms S IN I/aVL/V4/V5/V6] Compared to ECG 05/15/2023 20:11:39 No significant changes Electronically Signed On 10-16-2023 21:47:30 BOAT DECKHAND by Aabd Glover M.D. [id number]
[2023-10-16 21:31] LABS: Troponin 5 2HR 14.51 ng/L (0-15)
[2023-10-16 21:34] LABS: Troponin 5 2HR Delta -2.49 ABS# (0-10)
[2023-10-16 22:16] VITALS: BP 132/85; PULSE 80; RESP 22; O2SAT 96
== END 2023-10-16 22:19 | disposition home or self-care (01) ==
PROVIDERS: Emergency Provider Physician Assistant; PCP Family Medicine
DX: I48.91 Unspecified atrial fibrillation (principal); F41.1 Generalized anxiety disorder; E11.9 Type 2 diabetes mellitus without complications; R07.9 Chest pain, unspecified; I10 Essential (primary) hypertension; Z79.01 Long term (current) use of anticoagulants; Z79.82 Long term (current) use of aspirin; Z87.891 Personal history of nicotine dependence; Z95.1 Presence of aortocoronary bypass graft; E78.5 Hyperlipidemia, unspecified
CPT/HCPCS: 36415; 71045; 80053; 81001; 83880; 84443; 84484; 85025; 93005; 96360; 96361; 99285; J7040

== ENCOUNTER → 2023-11-16 11:23 | Outpatient (BNVA) | payer OTHER, MEDICARE, SELFPAY | PROVIDERS: PCP Family Medicine; Visit Provider Nurse Practitioner Family | DX: R05.9 Cough, unspecified (principal); R09.81 Nasal congestion | CPT/HCPCS: 87420; 87426 ==

== ENCOUNTER 2023-12-04 06:10 | Outpatient (CLI) | payer MEDICARE, OTHER, SELFPAY ==
--- NOTE | 2023-12-04 06:15 | USCV_ITS ---
Abhijit Cerna Age: 68 Gender: M : 1955 Exam Date: 12/04/2023 06:38 Ordering Phys: Jeannie Muñiz MD ([email or web address]) Technologist: Chung Harden Exam Location: [facility] – [place] Indication: carotid stenosis Risk Factors: Previous Vascular Surgery: Right Brachial BP: / Left Brachial BP: / Right Left Velocity (cm/s) Spectral Plaque Velocity (cm/s) Spectral Plaque Syst/Diast Broadening Syst/Diast Broadening 83.00/ 16.80 Prox CCA 136.30/ 22.70 66.10/ 19.40 Mid CCA 164.20/ 24.90 63.50/ 16.80 Distal CCA 77.90 / 15.40 169.90/33.70 Prox ICA 141.90/ 34.70 179.20/39.90 Mid ICA 124.70/ 32.60 132.00/27.00 Distal ICA 133.30/ 28.30 140.70 ECA 2.80 ICA/CCA 1.80 Antegrade Vertebral Antegrade 57.00/ 14.10 cm/s 62.60/ cm/s Tri Subclavian Tri 164.2 150.5 0 0 FINDINGS Moderate heterogenous plaques at the bifurcation and proximal internal carotid arteries bilaterally Technically difficult study because of the poor ultrasonic Intimal thickening and minimal plaques in the common carotid arteries bilaterally Antegrade flow in the vertebral arteries bilaterally. Normal Doppler flow velocities in the vertebral and subclavian arteries bilaterally CONCLUSIONS Moderate heterogenous plaques at the bifurcation and proximal internal carotid arteries bilaterally with velocity elevation, suggestive of 50 to 69% stenosis. No significant stenosis in the vertebral or subclavian arteries, based on the above findings The left external carotid artery was not visualized Technically difficult study because of the poor ultrasonic window Compared to the study from 05/06/2022, there may not be a significant change Dr Jeannie Muñiz MD [facility] (Electronically Signed) Final Date: 04 December 2023 20:08 S
== END 2023-12-04 06:11 | disposition home or self-care (01) ==
LOC: RAD 06:12
PROVIDERS: PCP Family Medicine; Visit Provider Internal Medicine Cardiovascular Disease
DX: I65.23 Occlusion and stenosis of bilateral carotid arteries (principal); R94.6 Abnormal results of thyroid function studies; E11.9 Type 2 diabetes mellitus without complications
CPT/HCPCS: 83036; 84439; 84443; 93880

== ENCOUNTER → 2024-01-18 08:01 | Outpatient (BNVA) | payer OTHER, MEDICARE, SELFPAY | PROVIDERS: PCP Family Medicine; Visit Provider Surgery | DX: Z12.11 Encounter for screening for malignant neoplasm of colon (principal); K21.9 Gastro-esophageal reflux disease without esophagitis | CPT/HCPCS: 99214 ==

== ENCOUNTER 2024-03-25 08:12 | Emergency (ER) | payer OTHER, MEDICARE, SELFPAY ==
[2024-03-25 08:51] VITALS: BP 149/63; PULSE 66; RESP 18; TEMP 36.4; O2SAT 96
--- NOTE | 2024-03-25 09:43 | W.ED.LOWEXIN ---
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 Patient states he has already been seen by a [facility] and had an x-ray of the knee which showed torn ligaments . He was instructed to follow-up with primary care. He does state he has an appointment with Dr. Yoon on Thursday. He is hoping for an MRI today in the emergency department. He has been taking OTC Tylenol without relief of his pain. He states he has been instructed to stay away from anti-inflammatories. Patient is ambulatory here without assistance. 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) Associated symptoms: Reports no associated symptoms Other symptoms: none Review of Systems Card: Denies: chest pain Resp: Denies: dyspnea Musc: Reports: joint pain (R knee); Denies: neck pain, back pain, extremity pain, extremity swelling or joint swelling Neuro: Denies: numbness in extremities, weakness in extremities or sensory changes [facility] ED PFSH: Medical History Post-COVID syndrome Hx: recurrent pneumonia Pharyngitis Chest pain Shortness of breath Interstitial edema Hypertensive urgency History of inguinal hernia Pulmonary emboli Dyslipidemia Severe obstructive sleep apnea Atrial fibrillation with RVR Atherosclerotic heart disease of [place] coronary artery without angina pectoris Hypokalemia Acid reflux Hypertension Surgical History S/P pericardial window creation 2001- [facility] [place] Hx of hernia repair Hx of CABG Family History Brother CAD (coronary artery disease) Stroke Brother CAD (coronary artery disease) Family/Other CAD (coronary artery disease) Mother Cancer Father Dementia Sister Lung disease Other Hyperlipidemia Hypertension Denies family history of Diabetes Clotting disorder Chronic kidney disease (CKD) Suicide Anesthesia complication Bleeding disorder Social History Smoking and tobacco/nicotine status: never used tobacco/nicotine Alcohol intake: former Substance/Drug Use: never Agree to transfusion: Yes (11/04/2019) Physical Exam Const: COMMON NORMALS: no acute distress, no limitations, alert and well nourished GENERAL APPEARANCE: cooperative NUTRITIONAL APPEARANCE: obese morbidly obese Extremity: COMMON NORMALS: normal to inspection, capillary refill normal and no calf tenderness GENERAL: Yes normal exam except as noted RIGHT LOWER EXTREMITY: Yes knee joint (TTP medial knee joint; mild edema) Right knee: Yes neurovascular exam (normal) Neuro: COMMON NORMALS: moves all extremities, no focal motor deficits and no sensory deficits noted SENSORIUM/ORIENTATION: Yes alert Course Vital Signs: Vital signs: Vital Signs Temperature 97.6 F 03/25/24 08:51 Pulse Rate 66 03/25/24 08:51 Respiratory Rate 18 03/25/24 08:51 Blood Pressure 149/63 03/25/24 08:51 Pulse Oximetry 96 03/25/24 08:51 Oxygen Delivery Me thod Room Air 03/25/24 08:51 MDM - Extremity Injury (Lower) Medical Decision Making There is no indication for emergent MRI imaging today. He has already received an XR through [facility] report from this he will bring with him on Thursday with his appoint with Dr. Yoon. Will provide AURORA wrap here as well as pain medications. Recommend ice and elevation. Medical Records I reviewed the patient's medical records. No radiology studies performed this visit Discharge Plan Discharge Patient Disposition: Home Clinical Impression: Injury of knee, right Qualifiers: Encounter type: initial encounter Qualified Code(s): S89.91XA - Unspecified injury of right lower leg, initial encounter Condition: Stable Prescriptions: New tramadol 50 mg tablet 50 mg PO Q6H PRN (Reason: pain) Qty: 14 0RF No Action omeprazole 20 mg tablet,delayed release (DR/EC) 20 mg PO DAILY PRN (Reason: Heartburn) fluticasone propionate 50 mcg/actuation spray,suspension 1 spray intranasal BID PRN (Reason: nasal congestion) Qty: 16 0RF Rx Instructions: administer into each nostril triamcinolone acetonide 0.1 % cream 1 applic topical BID Qty: 453.6 0RF Abrysvo 120 mcg/0.5 mL recon soln 0.5 ml IM ONCE Qty: 1 0RF pantoprazole [Protonix] 40 mg tablet,delayed release (DR/EC) 40 mg PO BID 42 Days Qty: 84 1RF sildenafil (pulm.hypertension) 20 mg tablet 20 mg PO .COMPLEX Qty: 30 1RF Rx Instructions: 1-5 tablets 1 hr prior to intercourse prn; administer doses at least 4-6 hours apart metoprolol tartrate 50 mg tablet See Rx Instructions .ROUTE .COMPLEX Qty: 135 3RF Dose Instruction: TAKE 1 TABLET BY MOUTH EVERY MORNING and ONE-HALF EVERY EVENING FOR afib Rx Instructions: TAKE 1 TABLET BY MOUTH EVERY MORNING and ONE-HALF EVERY EVENING FOR afib furosemide 20 mg tablet See Rx Instructions .ROUTE .COMPLEX Qty: 270 2RF Dose Instruction: TAKE THREE TABLETS BY MOUTH EVERY MORNING NEEDED FOR edema Rx Instructions: TAKE THREE TABLETS BY MOUTH EVERY MORNING NEEDED FOR edema (DME) auto titrating CPAP 12-16 cm and supplies See Rx Instructions .Route .MEDSUPPLY Qty: 1 0RF Rx Instructions: As directed ezetimibe 10 mg tablet See Rx Instructions .ROUTE .COMPLEX Qty: 90 1RF Dose Instruction: TAKE ONE TABLET BY MOUTH EVERY DAY Rx Instructions: TAKE ONE TABLET BY MOUTH EVERY DAY valsartan 160 mg tablet See Rx Instructions .ROUTE .COMPLEX Qty: 90 2RF Dose Instruction: TAKE 1 TABLET BY MOUTH EVERY DAY Rx Instructions: TAKE 1 TABLET BY MOUTH EVERY DAY citalopram 20 mg tablet 10 mg PO DAILY Qty: 90 0RF potassium chloride 20 mEq tablet,ER particles/crystals 20 meq PO DAILY Qty: 90 1RF Eliquis 5 mg tablet See Rx Instructions .ROUTE .COMPLEX Qty: 180 3RF Dose Instruction: TAKE ONE TABLET BY MOUTH TWICE DAILY Rx Instructions: TAKE ONE TABLET BY MOUTH TWICE DAILY sotalol 80 mg tablet See Rx Instructions .ROUTE .COMPLEX Qty: 180 2RF Dose Instruction: TAKE 1 TABLET BY MOUTH TWICE DAILY Rx Instructions: TAKE 1 TABLET BY MOUTH TWICE DAILY aspirin 325 mg Tablet 325 mg PO QAM melatonin 10 mg Tablet 10 mg PO BEDTIME PRN (Reason: Sleep) magnesium oxide 400 mg magnesium Tablet 400 mg PO BEDTIME Claritin 10 mg Tablet 10 mg PO DAILY PRN (Reason: Allergy Symptoms) Discharge Orders: Discharge ED (Routine); Ordered 03/25/24 Ordered By: Saba Simon Coding Level of Care Code ED 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
== END 2024-03-25 10:06 | disposition home or self-care (01) ==
PROVIDERS: Emergency Provider Physician Assistant
DX: S89.91XA Unspecified injury of right lower leg, initial encounter (principal); I10 Essential (primary) hypertension; I25.10 Atherosclerotic heart disease of native coronary artery without angina pectoris; E78.5 Hyperlipidemia, unspecified; I48.91 Unspecified atrial fibrillation; Z79.899 Other long term (current) drug therapy; Z79.82 Long term (current) use of aspirin; Z79.01 Long term (current) use of anticoagulants; Z86.711 Personal history of pulmonary embolism; Z95.1 Presence of aortocoronary bypass graft; X50.0XXA Overexertion from strenuous movement or load, initial encounter
CPT/HCPCS: 99283

== ENCOUNTER → 2024-05-03 09:51 | Outpatient (BNVA) | payer OTHER, MEDICARE, SELFPAY | PROVIDERS: PCP Family Medicine Adult Medicine; Visit Provider Nurse Practitioner | DX: M17.0 Bilateral primary osteoarthritis of knee (principal); M25.761 Osteophyte, right knee | CPT/HCPCS: 73560; 73565 ==

== ENCOUNTER → 2024-09-22 10:13 | Outpatient (BNVA) | payer MEDICARE, OTHER, SELFPAY | DX: E11.9 Type 2 diabetes mellitus without complications (principal); E78.5 Hyperlipidemia, unspecified | CPT/HCPCS: 80053; 80061; 83036; 85025 ==

== ENCOUNTER → 2024-10-14 09:47 | Outpatient (BNVA) | payer MEDICARE, OTHER, SELFPAY | PROVIDERS: Visit Provider Nurse Practitioner | DX: M17.11 Unilateral primary osteoarthritis, right knee (principal); G89.29 Other chronic pain; M54.41 Lumbago with sciatica, right side | CPT/HCPCS: 99214 ==

== ENCOUNTER 2024-10-18 11:19 | Outpatient (CLI) | payer MEDICARE, OTHER, SELFPAY | END 2024-10-18 11:20 | disposition home or self-care (01) | LOC: SPT 11:39 | PROVIDERS: Visit Provider Nurse Practitioner | DX: Z46.89 Encounter for fitting and adjustment of other specified devices (principal); M17.11 Unilateral primary osteoarthritis, right knee | CPT/HCPCS: 97760; L1851 ==

== ENCOUNTER → 2024-12-05 09:19 | Outpatient (BNVA) | payer MEDICARE, SELFPAY | PROVIDERS: PCP Family Medicine; Visit Provider Family Medicine | DX: M62.830 Muscle spasm of back (principal) | CPT/HCPCS: 80048 ==

== ENCOUNTER → 2024-12-30 10:46 | Outpatient (BNVA) | payer MEDICARE, SELFPAY | PROVIDERS: PCP Family Medicine; Visit Provider Internal Medicine Cardiovascular Disease | DX: I48.21 Permanent atrial fibrillation (principal); Z79.01 Long term (current) use of anticoagulants; Z79.82 Long term (current) use of aspirin; I11.0 Hypertensive heart disease with heart failure; I50.32 Chronic diastolic (congestive) heart failure; I25.10 Atherosclerotic heart disease of native coronary artery without angina pectoris; M79.603 Pain in arm, unspecified; Z95.1 Presence of aortocoronary bypass graft; Z87.891 Personal history of nicotine dependence; R07.9 Chest pain, unspecified | CPT/HCPCS: 99214 ==

== ENCOUNTER → 2024-12-30 10:59 | Outpatient (BNVA) | payer MEDICARE, SELFPAY | PROVIDERS: PCP Family Medicine; Visit Provider Internal Medicine Cardiovascular Disease | DX: R07.9 Chest pain, unspecified (principal); I48.92 Unspecified atrial flutter; R00.0 Tachycardia, unspecified; I45.10 Unspecified right bundle-branch block | CPT/HCPCS: 93005 ==

== ENCOUNTER → 2025-01-02 09:34 | Outpatient (BNVA) | payer MEDICARE, SELFPAY | PROVIDERS: PCP Family Medicine; Visit Provider Nurse Practitioner | DX: M19.012 Primary osteoarthritis, left shoulder (principal); M67.912 Unspecified disorder of synovium and tendon, left shoulder | CPT/HCPCS: 20610; 73030; 99214; J1100; J2795; J3301; J9999 ==

== ENCOUNTER → 2025-01-30 13:48 | Outpatient (BNVA) | payer MEDICARE, SELFPAY | PROVIDERS: PCP Family Medicine; Visit Provider Nurse Practitioner | DX: S46.812A Strain of other muscles, fascia and tendons at shoulder and upper arm level, left arm, initial encounter (principal); M19.012 Primary osteoarthritis, left shoulder; X58.XXXA Exposure to other specified factors, initial encounter | CPT/HCPCS: 20610; 99214 ==